=== PATIENT | female | born 1995 ===

== ENCOUNTER 2017-04-10 12:52 | Emergency (ER) | payer OTHER ==
[2017-04-10 12:52] VITALS: BMI 25.9
[2017-04-10 13:08] VITALS: BP 115/58; PULSE 113; RESP 16; TEMP 98; O2SAT 99
--- NOTE | 2017-04-10 13:11 | ED PDOC ---
HPI: Abdomen Time Seen by Provider: 04/10/17 13:10 Chief Complaint (Nursing): Abdominal Pain Chief Complaint (Provider): abdominal pain History Per: Patient Additional Complaint(s): 21-year-old female presents to emergency department with dysuria for the past 2 days. Patient has had intermittent pelvic pain for the past 2 months but has not had dysuria until 2 days ago. Patient has not taken any medication for pain relief. She denies any vaginal bleeding or vaginal discharge. Patient reports history of irregular menses and states that her last period was last week. She denies concern for . Patient is currently sexually active with one partner and denies concern for STDs. No associated fever or chills. Past Medical History Reviewed: Historical Data, Nursing Documentation, Vital Signs Vital Signs: Last Vital Signs Temp 98 F 04/10/17 13:04 Pulse 113 H 04/10/17 13:04 Resp 16 04/10/17 13:04 BP 115/58 L 04/10/17 13:04 Pulse Ox 99 04/10/17 14:07 - Medical History PMH: Anemia, Asthma - Surgical History Surgical History: No Surg Hx - Family History Family History: States: No Known Family Hx - Living Arrangements Living Arrangements: With Family - Social History Current smoker - smoking cessation education provided: Yes Alcohol: None Drugs: Denies - Home Medications Home Medications: Ambulatory Orders Medication Instructions Recorded Acetaminophen [Acetaminophen 8 650 mg PO Q8H #2 tablet.er 08/05/16 Hour] Ibuprofen [Motrin Tab] 800 mg PO Q6H PRN #2 tab 08/05/16 Ibuprofen [Motrin] 600 mg PO Q6 PRN #15 tab 04/10/17 Nitrofurantoin Macrocrystals 100 mg PO BID #14 cap 04/10/17 [Macrobid] - Allergies Allergies/Adverse Reactions: Allergies Allergy/AdvReac Type Severity Reaction Status Date / Time barium iodide Allergy ITCHING Verified 08/05/16 14:30 latex Allergy SWELLING Verified 08/05/16 14:30 Review of Systems ROS Statement: Except As Marked, All Systems Reviewed And Found Negative Constitutional: Negative for: Fever Respiratory: Negative for: Cough Gastrointestinal: Negative for: Nausea, Vomiting, Hematemesis Genitourinary Female: Positive for: Dysuria, Pelvic Pain. Negative for: Frequency, Incontinence, Vaginal Discharge, Vaginal Bleeding Physical Exam - Reviewed Nursing Documentation Reviewed: Yes Vital Signs Reviewed: Yes - Physical Exam Appears: Positive for: Well, Non-toxic, No Acute Distress Skin: Negative for: Rash Eye Exam: Positive for: Normal appearance, EOMI, PERRL Cardiovascular/Chest: Positive for: Regular Rate, Rhythm Respiratory: Positive for: Normal Breath Sounds Gastrointestinal/Abdominal: Positive for: Bowel Sounds (normoactive in all 4 quadrants), Soft, Distended. Negative for: Tenderness, Guarding, Rebound Back: Negative for: L CVA Tenderness, R CVA Tenderness Extremity: Positive for: Normal ROM Neurologic/Psych: Positive for: Alert, Oriented - Laboratory Results Urine POC: Negative Urine dip results: Positive for: Leukocyte Esterase (small), Blood (moderate) - ECG O2 Sat by Pulse Oximetry: 99 Pulse Ox Interpretation: Normal Medical Decision Making Medical Decision Makin21 year old with 2 month history of pelvic pain Plan: Urine Urine dip Urine culture CHL/GC culture UTIs noted. Patient was given prescription for Macrobid and Motrin. She was advised to drink plenty of fluids. Patient was instructed to follow up with primary doctor for any persistent symptoms. Disposition - Clinical Impression Clinical Impression: Urinary tract infection - Patient ED Disposition Is Patient to be Admitted: No Counseled Patient/Family Regarding: Studies Performed, Diagnosis, Need For Followup, Rx Given - Disposition Referrals: Shaik Kirby MD [Family Provider] - Disposition: Routine/Home Disposition Time: 14:34 Condition: STABLE Additional Instructions: Take rx meds as directed. Drink plenty of water. Follow up in 1-2 days with primary care doctor. Prescriptions: Ibuprofen [Motrin] 600 mg PO Q6 PRN #15 tab PRN Reason: Pain, Moderate (4-7) Nitrofurantoin Macrocrystals [Macrobid] 100 mg PO BID #14 cap Instructions: Urinary Tract Infection in Women (ED) Forms: [employer] ([place])
== END 2017-04-10 15:08 | disposition home or self-care (01) ==
LOC: H.ER 12:52
DX: N39.0 Urinary tract infection, site not specified (principal); J45.909 Unspecified asthma, uncomplicated

== ENCOUNTER 2017-04-17 12:59 | Emergency (ER) | payer OTHER ==
[2017-04-17 12:59] VITALS: BMI 25.9
[2017-04-17 13:18] VITALS: BP 113/65; PULSE 71; RESP 16; TEMP 98.2; O2SAT 99
[2017-04-17] MEDS ORDERED: cefTRIAXone (Rocephin) 250 mg Inj IM STA (13:19)
[2017-04-17] MEDS ORDERED: Sterile Water 10 ML IV ONE (13:43)
--- NOTE | 2017-04-17 14:17 | ED PDOC ---
HPI: General Adult Time Seen by Provider: 04/17/17 13:30 Chief Complaint (Nursing): Abnormal Labs Chief Complaint (Provider): Abnl labs History Per: Patient History/Exam Limitations: no limitations Recently: Seen In ED Additional History Per: Patient Additional Complaint(s): The patient is a 21yo female, no past medical history, presents to the ED for a follow up visit after being informed she was positive for gonorrhea. Patient denies any fevers, chills, but does report cold and congestion for the past week. She reports nasal congestion and mild throat pain upon swallowing. No other medical complaints. Past Medical History Reviewed: Historical Data, Nursing Documentation, Vital Signs Vital Signs: Last Vital Signs Temp 98.2 F 04/17/17 13:16 Pulse 71 04/17/17 13:16 Resp 16 04/17/17 13:16 BP 113/65 04/17/17 13:16 Pulse Ox 99 04/17/17 14:18 - Medical History PMH: Anemia, Asthma - Family History Family History: States: Unknown Family Hx - Home Medications Home Medications: Ambulatory Orders Medication Instructions Recorded Acetaminophen [Acetaminophen 8 650 mg PO Q8H #2 tablet.er 08/05/16 Hour] Ibuprofen [Motrin Tab] 800 mg PO Q6H PRN #2 tab 08/05/16 Ibuprofen [Motrin] 600 mg PO Q6 PRN #15 tab 04/10/17 Nitrofurantoin Macrocrystals 100 mg PO BID #14 cap 04/10/17 [Macrobid] Ibuprofen [Motrin] 600 mg PO Q8 PRN #21 tab 04/17/17 Pseudoephedrine [Sudafed Tab] 60 mg PO Q6 PRN #24 tab 04/17/17 - Allergies Allergies/Adverse Reactions: Allergies Allergy/AdvReac Type Severity Reaction Status Date / Time barium iodide Allergy ITCHING Verified 08/05/16 14:30 latex Allergy SWELLING Verified 08/05/16 14:30 Review of Systems ROS Statement: Except As Marked, All Systems Reviewed And Found Negative Constitutional: Negative for: Fever, Chills ENT: Positive for: Nose Congestion, Throat Pain Physical Exam - Reviewed Nursing Documentation Reviewed: Yes Vital Signs Reviewed: Yes - Physical Exam Appears: Positive for: Well, Non-toxic, No Acute Distress Head Exam: Positive for: ATRAUMATIC, NORMAL INSPECTION, NORMOCEPHALIC Skin: Positive for: Normal Color, Warm, DRY Eye Exam: Positive for: EOMI, Normal appearance, PERRL ENT: Positive for: Nasal Congestion, Pharyngeal Erythema (mild) Neck: Positive for: Normal, Supple Cardiovascular/Chest: Positive for: Regular Rate, Rhythm Respiratory: Positive for: Normal Breath Sounds. Negative for: Respiratory Distress Neurologic/Psych: Positive for: Alert, Oriented. Negative for: Motor/Sensory Deficits - ECG O2 Sat by Pulse Oximetry: 99 (RA) Pulse Ox Interpretation: Normal - Progress ED Course And Treament: Rocephin 250 mg IM x 1 dose Zithromax 1 gm po x 1 dose Called to bedside to discuss additional symptoms of nasal congestion/sneezing/ sore throat. Denies any fevers/cough. ENT: nasal congestion noted. Pharynx: no exudates; minimal erythema noted. Lungs: CTAB Medical Decision Making Medical Decision Making: Time: 1340 Impression: Follow up visit, nasal congestion Plan: -- Zithromax 100 gm PO -- Rocephin 125 mg IM Reassess Scribe Attestation: Documented by Екатерина Holland acting as a scribe for SAV Lim Provider Attestation: All medical record entries made by the Scribe were at my direction and personally dictated by me. I have reviewed the chart and agree that the record accurately reflects my personal performance of the history, physical exam, medical decision making, and the department course for this patient. I have also personally directed, reviewed, and agree with the discharge instructions and disposition. Disposition - Clinical Impression Clinical Impression: Viral illness, Gonorrhea - Patient ED Disposition Is Patient to be Admitted: No - Disposition [facility] Disposition: Routine/Home Disposition Time: 14:22 Condition: FAIR Prescriptions: Ibuprofen [Motrin] 600 mg PO Q8 PRN #21 tab PRN Reason: Pain, Moderate (4-7) Pseudoephedrine [Sudafed Tab] 60 mg PO Q6 PRN #24 tab PRN Reason: Nasal Congestion Instructions: Sexually Transmitted Diseases (ED), Viral Syndrome (ED) Forms: [employer] (Persian), [facility] ED School/Work Excuse
== END 2017-04-17 14:36 | disposition home or self-care (01) ==
LOC: H.ER 12:59
DX: A54.9 Gonococcal infection, unspecified (principal); B34.9 Viral infection, unspecified
CPT/HCPCS: 96372; 99281; J0696

== ENCOUNTER 2017-09-30 12:40 | Emergency (ER) | payer OTHER ==
[2017-09-30 12:40] VITALS: BMI 25.9
[2017-09-30] MEDS ORDERED: Sodium Chloride 0.9% 1,000 ML IV SCH ×2 (13:30→19:30)
[2017-09-30 13:57] LABS: BASO % 0.4 % (0.0-2.0); HEMOGLOBIN 13.7 g/dL (12.0-16.0); LYMPH # 0.2 K/uL (1.0-4.3); LYMPH % 1.9 % (20.0-40.0); MEAN CELL VOLUME 92.4 fl (81.0-99.0); MEAN CORPUSCULAR HEMOGLOBIN 30.5 pg (27.0-31.0); MEAN PLATELET VOLUME 8.3 fl (7.2-11.7); MONO # 0.5 K/uL (0.0-0.8); MONO % 4.3 % (0.0-10.0); NEUT # 11.4 K/uL (1.8-7.0); NEUT % 93.4 % (50.0-75.0); NRBC % 0.1 % (0.0-0.0); PLATELET COUNT 216 K/uL (130-400); RBC 4.49 Mil/uL (3.80-5.20); RED CELL DISTRIBUTION WIDTH 12.9 % (11.5-14.5); WHITE BLOOD COUNT 12.2 K/uL (4.8-10.8)
[2017-09-30 14:33] LABS: ALB/GLOB RATIO 1.3 (1.0-2.1); ALBUMIN 4.4 g/dL (3.5-5.0); ALT/SGPT 55 U/L (9-52); AST/SGOT 32 U/L (14-36); BLOOD UREA NITROGEN 17 mg/dl (7-17); CALCIUM 9.4 mg/dL (8.4-10.2); GFR AFRICAN-AMERICAN > 60; GFR NON-AFRICAN AMERICAN > 60; LIPASE 39 U/L (23-300)
[2017-09-30 14:39] LABS: BANDS 4 % (0-2); LYMPHOCYTE 1 % (20-50); MONOCYTE 5 % (0-10); NEUTROPHIL 90 % (42-75); PLATELET ESTIMATE NORMAL (NORMAL); TOTAL CELLS COUNTED 100
--- NOTE | 2017-09-30 15:14 | ED PDOC ---
HPI: Abdomen Time Seen by Provider: 09/30/17 13:06 Chief Complaint (Nursing): GI Problem Chief Complaint (Provider): Abdominal Pain History Per: Patient History/Exam Limitations: no limitations Onset/Duration Of Symptoms: Days (x4) Outside of [place] travel?: No Current Symptoms Are (Timing): Still Present Additional Complaint(s): Patient complains of abdominal pain that she has been experiencing for the past four days, associated with multiple episodes of both vomiting and diarrhea. Otherwise: (-) fever, (-) melena, (-) hematochezia, (-) recent travel, (-) new foods, (-) recent antibiotics use. Past Medical History Reviewed: Historical Data, Nursing Documentation, Vital Signs Vital Signs: Last Vital Signs Temp 98 F 09/30/17 12:46 Pulse 65 09/30/17 18:26 Resp 16 09/30/17 18:26 BP 122/78 09/30/17 18:26 Pulse Ox 100 09/30/17 18:46 - Medical History PMH: Anemia, Asthma - Family History Family History: States: Unknown Family Hx - Immunization History Hx Tetanus Toxoid Vaccination: No Hx Influenza Vaccination: No Hx Pneumococcal Vaccination: No - Home Medications Home Medications: Ambulatory Orders Medication Instructions Recorded Acetaminophen [Acetaminophen 8 650 mg PO Q8H #2 tablet.er 08/05/16 Hour] Ibuprofen [Motrin Tab] 800 mg PO Q6H PRN #2 tab 08/05/16 Ibuprofen [Motrin] 600 mg PO Q6 PRN #15 tab 04/10/17 Nitrofurantoin Macrocrystals 100 mg PO BID #14 cap 04/10/17 [Macrobid] Ibuprofen [Motrin] 600 mg PO Q8 PRN #21 tab 04/17/17 Pseudoephedrine [Sudafed Tab] 60 mg PO Q6 PRN #24 tab 04/17/17 Dicyclomine [Bentyl] 20 mg PO QID PRN #20 tab 09/30/17 Loperamide [Loperamide HCl] 2 mg PO DAILY PRN #10 cap 09/30/17 Ondansetron ODT [Zofran ODT] 4 mg PO DAILY PRN #20 odt 09/30/17 - Allergies Allergies/Adverse Reactions: Allergies Allergy/AdvReac Type Severity Reaction Status Date / Time barium iodide Allergy ITCHING Verified 08/05/16 14:30 latex Allergy SWELLING Verified 08/05/16 14:30 Review of Systems Constitutional: Negative for: Fever Gastrointestinal: Positive for: Vomiting, Abdominal Pain, Diarrhea Physical Exam - Reviewed Nursing Documentation Reviewed: Yes Vital Signs Reviewed: Yes - Physical Exam Comments: GENERAL APPEARANCE: Patient is awake, alert, oriented x 3, in mild distress. SKIN: Warm, dry; (-) cyanosis. EYES: (-) conjunctival pallor, (-) scleral icterus. ENMT: Mucous membranes dry. NECK: (-) tenderness, (-) stiffness, (-) lymphadenopathy. CHEST AND RESPIRATORY: (-) rales, (-) rhonchi, (-) wheezes; breath sounds equal bilaterally. HEART AND CARDIOVASCULAR: (-) irregularity; (-) murmur, (-) gallop. ABDOMEN AND GI: (-) distention. Bowel sounds active; mild diffuse abdominal tenderness to palpation. (-) guarding, (-) rebound, (-) palpable masses, (-) CVA tenderness. EXTREMITIES: (-) deformity, (-) edema, (+) distal pulses. NEURO AND PSYCH: Mental status as above; (-) focal findings. - Laboratory Results Result Diagrams: 09/30/17 13:40 09/30/17 13:40 - ECG O2 Sat by Pulse Oximetry: 100 (RA) Pulse Ox Interpretation: Normal Medical Decision Making Medical Decision Making: Impression: Abdominal Pain Plan: * CT Abdomen/Pelvis w/o PO or IV contrast * Pepcid 20 mg IV * Zofran 4 mg IV * NaCl 1000 mLs at 1000 mLs/hr * Reevaluation * [facility] [place] (-) Labs reviewed : patient noted to have a mild elevation to her WBC with bands. Considering elevated WBC and bandemia, CT A/P ordered. On re-evaluation, patient reports mild improvement of symptoms, reports no vomiting. On exam, patient remains AAOx3, in no acute distress. Lungs clear to auscultation, cardiac RRR, abdomen soft, non-tender. CT Abdomen/Pelvis w/o PO or IV contrast FINDINGS: Limitations: Lack of intravenous contrast. Lower thorax: No acute findings. ABDOMEN: Liver: Fatty infiltration. Gallbladder and bile ducts: No calcified stones. No ductal dilation. Pancreas: Unremarkable. No ductal dilation. Spleen: No splenomegaly. Adrenals: No mass. Kidneys and ureters: No renal calculi. No hydronephrosis. Stomach and bowel: Fluid within small bowel. Fluid/loose stool within large bowel. No definite mural thickening. No obstruction. Appendix: Normal caliber. No inflammation. PELVIS: Bladder: Unremarkable. No stones. Reproductive: Unremarkable as visualized. ABDOMEN and PELVIS: Intraperitoneal space: No significant fluid collection. No free air. Bones/joints: No acute fracture. Soft tissues: Tiny umbilical hernia containing fat. Vasculature: Unremarkable. No aneurysm. Lymph nodes: No pathologically enlarged lymph nodes. IMPRESSION: 1. Fluid/loose stool within bowel may suggest diarrhea illness. 2. Incidental/non-acute findings are described above. On re-evaluation, patient is resting in bed comfortably, able to tolerate po fluids. Diagnostic results d/w the patient in great detail. Diagnosis of gastroenteritis d/w the patient. Based on history, exam and diagnostic results, plan will be for outpatient follow up. Patient instructed to follow-up with pmd in 1-2 days without fail. Advised to take medication as prescribed. Return to the emergency room at any time for any new or worsening symptoms. Patient states she fully agrees with and understands discharge instructions. States that she agrees with the plan and disposition. Verbalized and repeated discharge instructions and plan. I have given the patient opportunity to ask any additional questions. Scribe Attestation: Documented by Nahomi Reddy, acting as a scribe for Irene Waller PA-C. Provider Scribe Attestation: All medical record entries made by the Scribe were at my direction and personally dictated by me. I have reviewed the chart and agree that the record accurately reflects my personal performance of the history, physical exam, medical decision making, and the department course for this patient. I have also personally directed, reviewed, and agree with the discharge instructions and disposition. Disposition - Clinical Impression Clinical Impression: Gastroenteritis - Patient ED Disposition Is Patient to be Admitted: No Counseled Patient/Family Regarding: Studies Performed, Diagnosis, Need For Followup, Rx Given - Disposition Disposition: Routine/Home Disposition Time: 18:45 Condition: STABLE Additional Instructions: Thank you for letting us take care of you today. You were treated for gastroenteritis. The emergency medical care you received today was directed at your acute symptoms. If you were prescribed any medication, please fill it and take as directed. It may take several days for your symptoms to resolve. Return to the Emergency Department if your symptoms worsen, do not improve, or if you have any other problems. Please contact your doctor in 2 days for re-evaluation and follow up / or call one of the physicians/clinics you have been referred to that are listed on the Patient Visit Information form that is included in your discharge packet. Bring any paperwork you were given at discharge with you along with any medications you are taking to your follow up visit. Our treatment cannot replace ongoing medical care by a primary care provider (PCP) outside of the emergency department. Thank you for allowing the [facility] team to be part of your care today. Prescriptions: Dicyclomine [Bentyl] 20 mg PO QID PRN #20 tab PRN Reason: Other Loperamide [Loperamide HCl] 2 mg PO DAILY PRN #10 cap PRN Reason: Diarrhea Ondansetron ODT [Zofran ODT] 4 mg PO DAILY PRN #20 odt PRN Reason: Nausea/Vomiting Instructions: Gastroenteritis (ED) Forms: [employer] ([place]), [facility] ED School/Work Excuse
[2017-09-30] MEDS ORDERED: Iohexol 300 100 ML IJ ONE (16:32)
[2017-09-30] MEDS ORDERED: Sodium Chloride 0.9% 50 ML IV ONE (16:33)
[2017-09-30 18:26] VITALS: RESP 16
--- NOTE | 2017-09-30 18:38 | CT ---
EXAM: CT Abdomen and Pelvis Without Intravenous Contrast CLINICAL HISTORY: 21 years old, female; Pain; Abdominal pain; Generalized; Patient HX: Ruq luq epigastric umbilical pain n v d x 3 days; Additional info: Abdominal pain, v/d TECHNIQUE: Axial computed tomography images of the abdomen and pelvis without intravenous contrast. All CT scans at this facility use one or more dose reduction techniques, viz.: automated exposure control; ma/kV adjustment per patient size (including targeted exams where dose is matched to indication; i.e. head); or iterative reconstruction technique. Coronal and sagittal reformatted images were created and reviewed. COMPARISON: No relevant prior studies available. FINDINGS: Limitations: Lack of intravenous contrast. Lower thorax: No acute findings. ABDOMEN: Liver: Fatty infiltration. Gallbladder and bile ducts: No calcified stones. No ductal dilation. Pancreas: Unremarkable. No ductal dilation. Spleen: No splenomegaly. Adrenals: No mass. Kidneys and ureters: No renal calculi. No hydronephrosis. Stomach and bowel: Fluid within small bowel. Fluid/loose stool within large bowel. No definite mural thickening. No obstruction. Appendix: Normal caliber. No inflammation. PELVIS: Bladder: Unremarkable. No stones. Reproductive: Unremarkable as visualized. ABDOMEN and PELVIS: Intraperitoneal space: No significant fluid collection. No free air. Bones/joints: No acute fracture. Soft tissues: Tiny umbilical hernia containing fat. Vasculature: Unremarkable. No aneurysm. Lymph nodes: No pathologically enlarged lymph nodes. IMPRESSION: 1. Fluid/loose stool within bowel may suggest diarrhea illness. 2. Incidental/non-acute findings are described above.
[2017-09-30 19:41] VITALS: BP 102/58; PULSE 119; O2SAT 99
[2017-09-30 20:53] VITALS: TEMP 101.8
== END 2017-09-30 21:10 | disposition home or self-care (01) ==
LOC: H.ER 12:40
DX: K52.9 Noninfective gastroenteritis and colitis, unspecified (principal)
CPT/HCPCS: 74176; 80053; 81025; 83690; 85025; 96361; 96374; 96375; 99285; J2405; J7040; Q9967

== ENCOUNTER 2017-11-09 16:36 | Emergency (ER) | payer OTHER ==
[2017-11-09 16:36] VITALS: BMI 25.9
[2017-11-09 17:01] VITALS: BP 111/74; PULSE 88; RESP 16; TEMP 98.4; O2SAT 99
--- NOTE | 2017-11-09 19:16 | ED PDOC ---
HPI:Nausea, Vomiting, Diarrhea Time Seen by Provider: 11/09/17 17:35 Chief Complaint (Nursing): Abdominal Pain Chief Complaint (Provider): Nausea and vomiting History Per: Patient History/Exam Limitations: no limitations Onset/Duration Of Symptoms: Days (x 1 month) Current Symptoms Are (Timing): Still Present Additional Complaint(s): 22 year old female presents to the ED complaining of nausea, upper abdominal discomfort and difficulty tolerating food ongoing for the last month. Patient was seen in the ED for similar symptoms, given Bentyl and followed up with PMD. She is currently taking Protonix without improvement. Otherwise: (-) chest pain , (-) shortness of breath,(-) vomiting, (-) diarrhea, (-) fever, (-) melena, (- ) hematochezia, (-) urinary symtpoms, (-) vaginal bleeding, (-) vaginal discharge. PMD: Dr. Shaik Mirta ADDISON Past Medical History Reviewed: Historical Data Vital Signs: Last Vital Signs Temp 98.4 F 11/09/17 16:58 Pulse 88 11/09/17 16:58 Resp 16 11/09/17 16:58 BP 111/74 11/09/17 16:58 Pulse Ox 99 11/09/17 16:58 - Medical History PMH: Anemia, Asthma - Surgical History Surgical History: No Surg Hx - Family History Family History: States: Unknown Family Hx - Immunization History Hx Tetanus Toxoid Vaccination: No Hx Influenza Vaccination: No Hx Pneumococcal Vaccination: No - Home Medications Home Medications: Ambulatory Orders Medication Instructions Recorded Acetaminophen [Acetaminophen 8 650 mg PO Q8H #2 tablet.er 08/05/16 Hour] Ibuprofen [Motrin Tab] 800 mg PO Q6H PRN #2 tab 08/05/16 Ibuprofen [Motrin] 600 mg PO Q6 PRN #15 tab 04/10/17 Nitrofurantoin Macrocrystals 100 mg PO BID #14 cap 04/10/17 [Macrobid] Ibuprofen [Motrin] 600 mg PO Q8 PRN #21 tab 04/17/17 Pseudoephedrine [Sudafed Tab] 60 mg PO Q6 PRN #24 tab 04/17/17 Dicyclomine [Bentyl] 20 mg PO QID PRN #20 tab 09/30/17 Loperamide [Loperamide HCl] 2 mg PO DAILY PRN #10 cap 09/30/17 Ondansetron ODT [Zofran ODT] 4 mg PO DAILY PRN #20 odt 09/30/17 Sucralfate [Carafate] 1 gm PO TID PRN #30 tab 11/09/17 - Allergies Allergies/Adverse Reactions: Allergies Allergy/AdvReac Type Severity Reaction Status Date / Time barium iodide Allergy ITCHING Verified 11/09/17 16:57 iodine Allergy ITCHING Verified 11/09/17 16:57 latex Allergy SWELLING Verified 11/09/17 16:57 Review of Systems ROS Statement: Except As Marked, All Systems Reviewed And Found Negative Constitutional: Positive for: Other (difficulty tolerating food). Negative for : Fever Gastrointestinal: Positive for: Nausea, Vomiting Genitourinary Female: Negative for: Dysuria, Frequency, Incontinence, Hematuria , Vaginal Discharge, Vaginal Bleeding Physical Exam - Reviewed Nursing Documentation Reviewed: Yes Vital Signs Reviewed: Yes - Physical Exam Comments: GENERAL APPEARANCE: Patient is awake, alert, oriented x 3, in no acute distress. Patient laying in bed comfortably. SKIN: Warm, dry; (-) cyanosis. EYES: (-) conjunctival pallor, (-) scleral icterus. ENMT: Mucous membranes moist. NECK: (-) tenderness, (-) stiffness, (-) lymphadenopathy. CHEST AND RESPIRATORY: (-) rales, (-) rhonchi, (-) wheezes; breath sounds equal bilaterally. HEART AND CARDIOVASCULAR: (-) irregularity; (-) murmur, (-) gallop. ABDOMEN AND GI: (-) distention. Bowel sounds active; (-) tenderness to deep palpation (-) guarding, (-) rebound, (-) palpable masses, (-) CVA tenderness. EXTREMITIES: (-) deformity, (-) edema, (+) distal pulses. NEURO AND PSYCH: Mental status as above; (-) focal findings. - ECG O2 Sat by Pulse Oximetry: 99 (RA) Pulse Ox Interpretation: Normal Medical Decision Making Medical Decision Making: Patient's previous records were reviewed. She was seen here on 09/30/[address] was within normal limits and gallbladder showed no stones. Time: 17:59 --Urine preg Urine HCG today was positive. Patient was notified that she is and was unaware. On reevaluation, she has no lower abdominal pain or vaginal bleeding. Her repeat abdominal exam was normal, with no tenderness to deep palpation. Patient is stable for discharge. She is going to follow up with GI referral and her OBGYN. Advised to take over the counter vitamins. Advised to take medication as prescribed. Return to the emergency room at any time for any new or worsening symptoms. Patient states she fully agrees with and understands discharge instructions. States that she agrees with the plan and disposition. Verbalized and repeated discharge instructions and plan. I have given the patient opportunity to ask any additional questions. ---- Scribe Attestation: Documented by Renetta Kelly, acting as a scribe for Irene Waller PA-C Provider Scribe Attestation: All medical record entries made by the Scribe were at my direction and personally dictated by me. I have reviewed the chart and agree that the record accurately reflects my personal performance of the history, physical exam, medical decision making, and the department course for this patient. I have also personally directed, reviewed, and agree with the discharge instructions and disposition. Disposition - Clinical Impression Clinical Impression: Abdominal pain, Dyspepsia, - Patient ED Disposition Is Patient to be Admitted: No Counseled Patient/Family Regarding: Diagnosis, Need For Followup, Rx Given - Disposition Referrals: Mark Huang MD [Staff Provider] - Disposition: Routine/Home Disposition Time: 18:30 Condition: STABLE Additional Instructions: Thank you for letting us take care of you today. You were treated for abdominal pain, dyspepsia. The emergency medical care you received today was directed at your acute symptoms. If you were prescribed any medication, please fill it and take as directed. It may take several days for your symptoms to resolve. Return to the Emergency Department if your symptoms worsen, do not improve, or if you have any other problems. Please contact your doctor in 2 days for re-evaluation and follow up / or call one of the physicians/clinics you have been referred to that are listed on the Patient Visit Information form that is included in your discharge packet. Bring any paperwork you were given at discharge with you along with any medications you are taking to your follow up visit. Our treatment cannot replace ongoing medical care by a primary care provider (PCP) outside of the emergency department. Thank you for allowing the [facility] team to be part of your care today. 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
== END 2017-11-09 18:20 | disposition home or self-care (01) ==
LOC: H.ER 16:36
DX: O26.899 Other specified pregnancy related conditions, unspecified trimester (principal); K30 Functional dyspepsia; J45.909 Unspecified asthma, uncomplicated

== ENCOUNTER 2018-05-13 09:57 | Emergency (ER) | payer OTHER ==
[2018-05-13 09:57] VITALS: BMI 25.9
--- NOTE | 2018-05-13 11:22 | ED PDOC ---
HPI: Abdomen Time Seen by Provider: 05/13/18 11:18 Chief Complaint (Nursing): Abdominal Pain Chief Complaint (Provider): ABD PAIN History Per: Patient (22 Y/O FEMALE HERE WITH ONGOING ABDOMINAL DISTENTION. DENIES ANY VOMITING/DIARRHEA/DYSURIA. WAS SEEN 09/2017 FOR ABD PAIN AND HAD CT AT THAT TIME WNL. PATIENT STATES SHE FEELS DISTENTION IS NEW SINCE THEN. HAD POSITIVE 10/2017 BUT LATER MISCARRIED.) Past Medical History Vital Signs: Last Vital Signs Temp 97.6 F 05/13/18 10:20 Pulse 105 H 05/13/18 10:20 Resp 20 05/13/18 10:20 BP 119/76 05/13/18 10:20 Pulse Ox 98 05/13/18 13:55 - Medical History PMH: Anemia, Asthma - Family History Family History: States: Unknown Family Hx - Immunization History Hx Tetanus Toxoid Vaccination: No Hx Influenza Vaccination: No Hx Pneumococcal Vaccination: No - Home Medications Home Medications: Ambulatory Orders Medication Instructions Recorded Acetaminophen [Acetaminophen 8 650 mg PO Q8H #2 tablet.er 08/05/16 Hour] Ibuprofen [Motrin Tab] 800 mg PO Q6H PRN #2 tab 08/05/16 Ibuprofen [Motrin] 600 mg PO Q6 PRN #15 tab 04/10/17 Nitrofurantoin Macrocrystals 100 mg PO BID #14 cap 04/10/17 [Macrobid] Ibuprofen [Motrin] 600 mg PO Q8 PRN #21 tab 04/17/17 Pseudoephedrine [Sudafed Tab] 60 mg PO Q6 PRN #24 tab 04/17/17 Dicyclomine [Bentyl] 20 mg PO QID PRN #20 tab 09/30/17 Loperamide [Loperamide HCl] 2 mg PO DAILY PRN #10 cap 09/30/17 Ondansetron ODT [Zofran ODT] 4 mg PO DAILY PRN #20 odt 09/30/17 Sucralfate [Carafate] 1 gm PO TID PRN #30 tab 11/09/17 Famotidine [Pepcid] 20 mg PO BID #10 tab 05/13/18 Simethicone [Gas-X] 125 mg PO QID PRN #24 ctb 05/13/18 - Allergies Allergies/Adverse Reactions: Allergies Allergy/AdvReac Type Severity Reaction Status Date / Time barium iodide Allergy ITCHING Verified 05/13/18 10:20 iodine Allergy ITCHING Verified 05/13/18 10:20 latex Allergy SWELLING Verified 05/13/18 10:20 - Laboratory Results Result Diagrams: 05/13/18 11:30 05/13/18 11:30 - ECG O2 Sat by Pulse Oximetry: 98 - Progress ED Course And Treament: xry obstructive IMPRESSION: Unremarkable radiographs of chest and abdomen. No evidence of mechanical bowel obstruction. us transvag IMPRESSION: No significant or acute findings to account for/ related to the clinical presentation. Additional benign and/or incidental findings described above. us abd IMPRESSION: Hepatic steatosis without focal abnormality. Solitary nonobstructing calculus midpole left kidney. Disposition - Clinical Impression Clinical Impression: Abdominal distension - Patient ED Disposition Is Patient to be Admitted: No - Disposition Referrals: Mark Huang MD [Staff Provider] - Disposition: Routine/Home Disposition Time: 13:56 Condition: FAIR Prescriptions: Famotidine [Pepcid] 20 mg PO BID #10 tab Simethicone [Gas-X] 125 mg PO QID PRN #24 ctb PRN Reason: Pain, Moderate (4-7) Instructions: Gas and Bloating Forms: [facility] ED School/Work Excuse
[2018-05-13 11:43] LABS: SQUAMOUS EPITHIAL 2 /hpf (0-5); URINE BACTERIA RARE (<OCC); URINE BILIRUBIN NEGATIVE (NEGATIVE); URINE BLOOD NEGATIVE (NEGATIVE); URINE CLARITY CLEAR (Clear); URINE COLOR YELLOW (YELLOW); URINE GLUCOSE (UA) NEG (Normal); URINE LEUKOCYTE ESTERASE NEG Leu/uL (Negative); URINE PROTEIN NEGATIVE (NEGATIVE); URINE UROBILINOGEN 0.2-1.0 mg/dL (0.2-1.0)
[2018-05-13 11:44] LABS: BASO % 0.3 % (0.0-2.0); EOS # 0.1 K/uL (0.0-0.7); EOS % 1.7 % (0.0-4.0); HEMOGLOBIN 13.3 g/dL (12.0-16.0); LYMPH % 26.9 % (20.0-40.0); MEAN CELL VOLUME 90.9 fl (81.0-99.0); MEAN CORPUSCULAR HEMOGLOBIN 30.4 pg (27.0-31.0); MEAN CORPUSCULAR HGB CONC 33.5 g/dL (33.0-37.0); MEAN PLATELET VOLUME 8.2 fl (7.2-11.7); MONO # 0.6 K/uL (0.0-0.8); MONO % 8.3 % (0.0-10.0); NEUT # 4.6 K/uL (1.8-7.0); NEUT % 62.8 % (50.0-75.0); RBC 4.36 Mil/uL (3.80-5.20); RED CELL DISTRIBUTION WIDTH 13.5 % (11.5-14.5); WHITE BLOOD COUNT 7.3 K/uL (4.8-10.8)
[2018-05-13 11:52] LABS: ALB/GLOB RATIO 1.3 (1.0-2.1); ALBUMIN 4.4 g/dL (3.5-5.0); ALT/SGPT 113 U/L (9-52); AST/SGOT 57 U/L (14-36); BLOOD UREA NITROGEN 14 mg/dl (7-17); CALCIUM 9.3 mg/dL (8.4-10.2); GFR NON-AFRICAN AMERICAN > 60; LIPASE 72 U/L (23-300)
--- NOTE | 2018-05-13 13:11 | US ---
Date of service: 05/13/2018 HISTORY: DISTENDED ABDOMEN; EVALUATE FOR ASCITES COMPARISON: None. TECHNIQUE: Sonographic evaluation of the abdomen. FINDINGS: LIVER: Measures 16.4 cm. Patent portal vein. Portal venous flow: Hepatopetal. Unremarkable echogenicity of the liver parenchyma. No mass. No intrahepatic bile duct dilatation. GALLBLADDER: Unremarkable. No gallstones. COMMON BILE DUCT: Measures 3.2 mm. No stones. No dilatation. PANCREAS: Unremarkable as visualized. No mass. No ductal dilatation. RIGHT KIDNEY: Measures 5 x 11.3cm. Normal echogenicity. No calculus, mass, or hydronephrosis. LEFT KIDNEY: Measures 5.2 x 10.6cm. Solitary nonobstructing calculus mid pole measuring 3 x 4 mm. SPLEEN: Normal in size and contour. No mass. AORTA: No aneurysmal dilatation. IVC: Unremarkable. OTHER FINDINGS: None. IMPRESSION: Hepatic steatosis without focal abnormality. Solitary nonobstructing calculus midpole left kidney.
--- NOTE | 2018-05-13 13:11 | RAD ---
Date of service: 05/13/2018 PROCEDURE: Radiographs of the chest and abdomen (obstructive series) HISTORY: Distended abdomen COMPARISON: No prior. TECHNIQUE: AP radiograph of the chest, with upright and supine radiographs of the abdomen. FINDINGS: CHEST: Lungs: Clear. Cardiovascular: Normal size heart. No pulmonary vascular congestion. Pleura: No pleural fluid. No pneumothorax. Other findings: None. ABDOMEN AND PELVIS: Bowel: Unremarkable bowel gas pattern. No evidence of mechanical obstruction. Free air: None. Bones: Unremarkable. Other findings: None. IMPRESSION: Unremarkable radiographs of chest and abdomen. No evidence of mechanical bowel obstruction.
--- NOTE | 2018-05-13 13:53 | US ---
Date of service: 05/13/2018 HISTORY: EVALUATE FOR PELVIC MASS LMP December 2017. Currently on Depo-Provera. COMPARISON: None available. TECHNIQUE: Transvaginal only. Real -time technique with 2D, duplex and color Doppler FINDINGS: UTERUS: Measures 3.7 x 5.4 x 6.8 cm. Normal in size and appearance. No fibroid or other mass lesion seen. ENDOMETRIUM: Measures 4.1 mm in diameter. No ultrasound findings to suggest gestational sac, fluid, debris, mass or polyp or other pathologic process within the endometrium. CERVIX: No cervical abnormality identified. RIGHT OVARY: Measures 2.4 x 3.9 x 3.1 cm. No solid mass. Normal flow. Multiple subcentimeter follicles. LEFT OVARY: Measures 2.7 x 3.8 x 3.8 cm. No solid mass. Normal flow. Multiple subcentimeter follicles. FREE FLUID: No significant free fluid noted. OTHER FINDINGS: None. IMPRESSION: No significant or acute findings to account for/ related to the clinical presentation. Additional benign and/or incidental findings described above.
[2018-05-13 14:00] VITALS: BP 115/81; PULSE 82; RESP 16; TEMP 97.9; O2SAT 100
== END 2018-05-13 14:09 | disposition home or self-care (01) ==
LOC: H.ER 09:57
DX: R14.0 Abdominal distension (gaseous) (principal); J45.909 Unspecified asthma, uncomplicated; N20.0 Calculus of kidney

== ENCOUNTER 2018-10-17 14:10 | Emergency (ER) | payer OTHER ==
[2018-10-17 14:35] VITALS: BP 122/75; PULSE 94; RESP 16; TEMP 99; O2SAT 99
[2018-10-17 14:36] VITALS: BMI 27.7
[2018-10-17] MEDS ORDERED: Lidocaine 1% Inj (20ml) SC ONE (14:39)
[2018-10-17] MEDS ORDERED: Tdap Vaccine 0.5 ml Vial (10-64 yrs) IM ONE (14:48)
--- NOTE | 2018-10-17 14:59 | ED PDOC ---
HPI: General Adult Time Seen by Provider: 10/17/18 14:35 Chief Complaint (Nursing): ENT Problem Chief Complaint (Provider): Earrings Stuck in Ears History Per: Patient History/Exam Limitations: no limitations Onset/Duration Of Symptoms: Days (x2 weeks) Current Symptoms Are (Timing): Still Present Additional Complaint(s): 22 year old female presents to the ED for evaluation of bilateral ear pain caused by earrings which have sunken in s/p getting the piercings two weeks ago. Denies fever and chills. Tetanus up to date (2 years ago) PMD: Shaik Kirby Past Medical History Reviewed: Historical Data, Nursing Documentation, Vital Signs Vital Signs: Last Vital Signs Temp 99 F 10/17/18 14:34 Pulse 94 H 10/17/18 14:34 Resp 16 10/17/18 14:34 BP 122/75 10/17/18 14:34 Pulse Ox 99 10/17/18 14:34 - Medical History PMH: Anemia, Asthma - Surgical History Surgical History: No Surg Hx - Family History Family History: States: Unknown Family Hx - Immunization History Hx Tetanus Toxoid Vaccination: Yes (2 years ago, as per patient) Hx Influenza Vaccination: No Hx Pneumococcal Vaccination: No - Home Medications Home Medications: Ambulatory Orders Medication Instructions Recorded Acetaminophen [Acetaminophen 8 650 mg PO Q8H #2 tablet.er 08/05/16 Hour] Ibuprofen [Motrin Tab] 800 mg PO Q6H PRN #2 tab 08/05/16 Ibuprofen [Motrin] 600 mg PO Q6 PRN #15 tab 04/10/17 Nitrofurantoin Macrocrystals 100 mg PO BID #14 cap 04/10/17 [Macrobid] Ibuprofen [Motrin] 600 mg PO Q8 PRN #21 tab 04/17/17 Pseudoephedrine [Sudafed Tab] 60 mg PO Q6 PRN #24 tab 04/17/17 Dicyclomine [Bentyl] 20 mg PO QID PRN #20 tab 09/30/17 Loperamide [Loperamide HCl] 2 mg PO DAILY PRN #10 cap 09/30/17 Ondansetron ODT [Zofran ODT] 4 mg PO DAILY PRN #20 odt 09/30/17 Sucralfate [Carafate] 1 gm PO TID PRN #30 tab 11/09/17 Docusate Sodium [Colace] 100 mg PO BID PRN #20 capsule 05/13/18 Simethicone [Gas-X] 125 mg PO QID PRN #24 ctb 05/13/18 Bacitracin Ointment [Bacitracin] 0.5 gm TOP BID #30 gm 10/17/18 Cephalexin [Keflex] 500 mg PO QID #28 cap 10/17/18 - Allergies Allergies/Adverse Reactions: Allergies Allergy/AdvReac Type Severity Reaction Status Date / Time barium iodide Allergy ITCHING Verified 05/13/18 10:20 iodine Allergy ITCHING Verified 05/13/18 10:20 latex Allergy SWELLING Verified 05/13/18 10:20 Review of Systems ROS Statement: Except As Marked, All Systems Reviewed And Found Negative Constitutional: Negative for: Fever, Chills ENT: Positive for: Ear Pain (bilateral, secondary to earrings sunken into skin) Physical Exam - Reviewed Nursing Documentation Reviewed: Yes Vital Signs Reviewed: Yes - Physical Exam Appears: Positive for: No Acute Distress Head Exam: Positive for: ATRAUMATIC, NORMAL INSPECTION, NORMOCEPHALIC Skin: Positive for: Normal Color, Warm Eye Exam: Positive for: Normal appearance ENT: Positive for: Other (Right ear: earring in place at helix with purulent discharge, surrounding swelling, and mild bleeding. Left ear: earring post sunken into tragus and enclosed by skin) Neck: Positive for: Normal, Painless ROM Cardiovascular/Chest: Positive for: Regular Rate, Rhythm Respiratory: Positive for: Normal Breath Sounds. Negative for: Respiratory Distress - ECG O2 Sat by Pulse Oximetry: 99 (RA) Pulse Ox Interpretation: Normal Medical Decision Making Medical Decision Making: Time: 1439 Initial Impression: earrings stuck in ear skin Initial Plan: --Lidocaine 1% 1ml SC 1700 Earrings removed from both ears by JYOTI. Left ear foreign body removal required a 5mm incision. Patient tolerated procedure well with no complications. Educated on wound care and return parameters. Will be discharged with antibiotics. Scribe Attestation: Documented by Danay Sawant, acting as a scribe for Jyothi Storey PA-C. Provider Scribe Attestation: All medical record entries made by the Scribe were at my direction and personally dictated by me. I have reviewed the chart and agree that the record accurately reflects my personal performance of the history, physical exam, medical decision making, and the department course for this patient. I have also personally directed, reviewed, and agree with the discharge instructions and disposition. Disposition - Clinical Impression Clinical Impression: Foreign body (FB) in soft tissue, Wound infection - Patient ED Disposition Is Patient to be Admitted: No - Disposition Disposition: Routine/Home Disposition Time: 17:17 Condition: FAIR Prescriptions: Bacitracin Ointment [Bacitracin] 0.5 gm TOP BID #30 gm Cephalexin [Keflex] 500 mg PO QID #28 cap Instructions: Foreign Body in Skin (DC), Wound Infection
[2018-10-17] MEDS ORDERED: Lidocaine 2% Inj (20ml) ONE (15:33)
[2018-10-17] MEDS: Lidocaine 2% Inj (20ml) SC ONE (17:16)
== END 2018-10-17 17:27 | disposition home or self-care (01) ==
LOC: H.ER 14:10
DX: T16.2XXA Foreign body in left ear, initial encounter (principal)

== ENCOUNTER 2018-11-18 10:32 | Emergency (ER) | payer OTHER ==
[2018-11-18 10:40] VITALS: BMI 25.8
[2018-11-18 10:41] VITALS: TEMP 97.7
--- NOTE | 2018-11-18 11:37 | ED PDOC ---
HPI: Chest Pain Time Seen by Provider: 11/18/18 10:50 Chief Complaint (Nursing): Chest Pain Chief Complaint (Provider): Chest pain History Per: Patient History/Exam Limitations: no limitations Onset/Duration Of Symptoms: Intermittent Episodes Current Symptoms Are (Timing): Gone Now Quality: "Pain" Associated Symptoms: denies: Nausea, Dyspnea, Diaphoresis, Syncope Additional History Per: Patient Additional Complaint(s): 23yo female, otherwise well, no past medical history, comes to ER reporting midsternal chest pain, radiating downwards, lasting for 1.5 hours yesterday. She states the pain is intermittently present today and has not taken any medications for her symptoms. She denies any associated nausea, vomiting, shortness of breath, OCP use, recent long distance travels or leg swelling. No additional complaints. PMD: Dr. Kirby Against Medical Advice - [facility] Patient Left Against Medical Advice: The patient declines admission to the hospital and wishes to leave the Emergency Department. This action is against my medical advice. This decision was made with informed refusal. The patient was told that admission to the hospital is necessary. Explanation of the reasons why were discussed. The risks of leaving were explained to the patient and include, but are not limited to, worsening of known or currently unknown conditions, permanent disability and from undiagnosed or untreated conditions. The patient has the capacity to make this informed decision and understands my explanation of the current medical problem and risks of leaving. The patient voluntarily accepts these risks and signed an AMA form documenting our conversation. The patient was given the opportunity to ask questions and reconsider. The patient was encouraged to return to the Emergency Department at any time for further care. Patient electing to leave [place] at 1326 Past Medical History Reviewed: Historical Data, Nursing Documentation, Vital Signs Vital Signs: Last Vital Signs Temp 97.7 F 11/18/18 10:40 Pulse 78 11/18/18 10:40 Resp 17 11/18/18 10:40 BP 117/78 11/18/18 10:40 Pulse Ox 98 11/18/18 10:40 - Medical History PMH: Anemia, Asthma - Surgical History Surgical History: No Surg Hx - Family History Family History: States: Unknown Family Hx - Immunization History Hx Tetanus Toxoid Vaccination: Yes (2 years ago, as per patient) Hx Influenza Vaccination: No Hx Pneumococcal Vaccination: No - Home Medications Home Medications: Ambulatory Orders Medication Instructions Recorded Acetaminophen [Acetaminophen 8 650 mg PO Q8H #2 tablet.er 08/05/16 Hour] Ibuprofen [Motrin Tab] 800 mg PO Q6H PRN #2 tab 08/05/16 Ibuprofen [Motrin] 600 mg PO Q6 PRN #15 tab 04/10/17 Nitrofurantoin Macrocrystals 100 mg PO BID #14 cap 04/10/17 [Macrobid] Ibuprofen [Motrin] 600 mg PO Q8 PRN #21 tab 04/17/17 Pseudoephedrine [Sudafed Tab] 60 mg PO Q6 PRN #24 tab 04/17/17 Dicyclomine [Bentyl] 20 mg PO QID PRN #20 tab 09/30/17 Loperamide [Loperamide HCl] 2 mg PO DAILY PRN #10 cap 09/30/17 Ondansetron ODT [Zofran ODT] 4 mg PO DAILY PRN #20 odt 09/30/17 Sucralfate [Carafate] 1 gm PO TID PRN #30 tab 11/09/17 Docusate Sodium [Colace] 100 mg PO BID PRN #20 capsule 05/13/18 Simethicone [Gas-X] 125 mg PO QID PRN #24 ctb 05/13/18 Bacitracin Ointment [Bacitracin] 0.5 gm TOP BID #30 gm 10/17/18 Cephalexin [Keflex] 500 mg PO QID #28 cap 10/17/18 - Allergies Allergies/Adverse Reactions: Allergies Allergy/AdvReac Type Severity Reaction Status Date / Time barium iodide Allergy ITCHING Verified 11/18/18 10:44 iodine Allergy ITCHING Verified 11/18/18 10:44 latex Allergy SWELLING Verified 11/18/18 10:44 Review of Systems ROS Statement: Except As Marked, All Systems Reviewed And Found Negative Constitutional: Negative for: Fever, Chills, Sweats Cardiovascular: Positive for: Chest Pain. Negative for: Palpitations Respiratory: Negative for: Cough, Shortness of Breath Musculoskeletal: Negative for: Other (leg swelling) Physical Exam - Reviewed Nursing Documentation Reviewed: Yes Vital Signs Reviewed: Yes - Physical Exam Appears: Positive for: Non-toxic, No Acute Distress Head Exam: Positive for: ATRAUMATIC, NORMAL INSPECTION, NORMOCEPHALIC Skin: Positive for: Normal Color, Warm, DRY Eye Exam: Positive for: EOMI, Normal appearance, PERRL Neck: Positive for: Normal, Painless ROM, Supple Cardiovascular/Chest: Positive for: Regular Rate, Rhythm. Negative for: Chest Non Tender (+ mid-sternal chest tenderness) Respiratory: Positive for: Normal Breath Sounds. Negative for: Respiratory Distress Gastrointestinal/Abdominal: Positive for: Normal Exam, Soft Back: Positive for: Normal Inspection Extremity: Positive for: Normal ROM Neurological/Psych: Positive for: Awake, Alert, Normal Tone. Negative for: Motor/Sensory Deficits - Laboratory Results Result Diagrams: 11/18/18 11:40 11/18/18 11:40 - ECG O2 Sat by Pulse Oximetry: 98 (RA) Pulse Ox Interpretation: Normal Medical Decision Making Medical Decision Mak[place] female with midsternal chest pain No family history of cardiac disease Plan: -- Labs -- EKG -- CXR Pt notified of elevated LFTS. 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 Discussed extensively with patient regarding risks of leaving AMA and she expresses understanding, patient still elects to leave AMA. Copies of labs, EKG given to patient; informed to return to ER immediately if symptoms worsen or other symptoms arise. Scribe Attestation: Documented by Екатерина Holland, acting as a scribe for Marlen Josue MD. Provider Scribe Attestation: All medical record entries made by the Scribe were at my direction and personally dictated by me. I have reviewed the chart and agree that the record a ccurately reflects my personal performance of the history, physical exam, medical decision making, and the department course for this patient. I have also personally directed, reviewed, and agree with the discharge instructions and disposition. Disposition - Clinical Impression Clinical Impression: Elevated LFTs - Disposition Disposition: Against Medical Advice Disposition Time: 13:26 Condition: STABLE Forms: [employer] ([place])
[2018-11-18 11:55] LABS: BASO % 0.3 % (0.0-2.0); EOS # 0.1 K/uL (0.0-0.7); EOS % 2.1 % (0.0-4.0); HEMOGLOBIN 13.5 g/dL (12.0-16.0); LYMPH # 1.8 K/uL (1.0-4.3); LYMPH % 28.1 % (20.0-40.0); MEAN CELL VOLUME 92.8 fl (81.0-99.0); MEAN CORPUSCULAR HGB CONC 33.4 g/dL (33.0-37.0); MEAN PLATELET VOLUME 8.2 fl (7.2-11.7); MONO # 0.6 K/uL (0.0-0.8); MONO % 8.7 % (0.0-10.0); NEUT % 60.8 % (50.0-75.0); NRBC % 0.1 % (0.0-0.0); RBC 4.36 Mil/uL (3.80-5.20); RED CELL DISTRIBUTION WIDTH 12.8 % (11.5-14.5); WHITE BLOOD COUNT 6.5 K/uL (4.8-10.8)
[2018-11-18 12:00] LABS: PROTHROMBIN TIME 11.9 Seconds (9.8-13.1)
[2018-11-18 12:03] LABS: PARTIAL THROMBOPLASTIN TIME 34.4 Seconds (25.6-37.1)
[2018-11-18 12:07] LABS: ALB/GLOB RATIO 1.3 (1.0-2.1); ALBUMIN 4.5 g/dL (3.5-5.0); ALT/SGPT 361 U/L (9-52); AST/SGOT 287 U/L (14-36); BLOOD UREA NITROGEN 16 mg/dl (7-17); CALCIUM 9.6 mg/dL (8.4-10.2); GFR NON-AFRICAN AMERICAN > 60
[2018-11-18 12:21] LABS: SQUAMOUS EPITHIAL 11 /hpf (0-5); URINE BACTERIA RARE (<OCC); URINE BILIRUBIN NEGATIVE (NEGATIVE); URINE BLOOD NEGATIVE (NEGATIVE); URINE CLARITY CLOUDY (Clear); URINE COLOR YELLOW (YELLOW); URINE GLUCOSE (UA) NEG (NEGATIVE); URINE LEUKOCYTE ESTERASE SMALL Leu/uL (Negative); URINE PROTEIN NEGATIVE (NEGATIVE); URINE UROBILINOGEN 0.2-1.0 mg/dL (0.2-1.0)
[2018-11-18] MEDS ORDERED: Sodium Chloride 0.9% 50 ML IV ONE (12:35)
[2018-11-18] MEDS ORDERED: Iodixanol 320 MG/ML 100 ML BOTTLE IV ONE (12:35)
[2018-11-18 13:51] VITALS: BP 112/61; PULSE 70; RESP 18; O2SAT 99
--- NOTE | 2018-11-18 16:08 | RAD ---
Date of service: 11/18/2018 HISTORY: Midsternal CP COMPARISON: No prior. TECHNIQUE: Chest PA and lateral views FINDINGS: LUNGS: No active pulmonary disease. PLEURA: No significant pleural effusion identified. No pneumothorax apparent. CARDIOVASCULAR: No aortic atherosclerotic calcification present. Normal cardiac size. No pulmonary vascular congestion. OSSEOUS STRUCTURES: No significant abnormalities. VISUALIZED UPPER ABDOMEN: Normal. OTHER FINDINGS: None. IMPRESSION: No active disease.
--- NOTE | 2018-11-19 08:36 | CARD ---
APPROVED REPORT Date of service: 11/18/2018 EKG Measurement Heart [id number] <Conclusion> Normal sinus rhythm with sinus arrhythmia Normal ECG
== END 2018-11-18 13:40 | disposition left against medical advice (07) ==
LOC: H.ER 10:32
DX: R79.89 Other specified abnormal findings of blood chemistry (principal); J45.909 Unspecified asthma, uncomplicated
CPT/HCPCS: 71046; 80053; 81003; 81025; 84484; 85025; 85378; 85610; 85730; 93005; 99284; Q9967

== ENCOUNTER 2018-11-20 10:53 | Observation (INO) | payer OTHER ==
[2018-11-20 10:54] VITALS: BMI 25.8
[2018-11-20] MEDS ORDERED: Naproxen 500 MG TAB PO STA (11:45)
[2018-11-20] MEDS ORDERED: Pantoprazole 40 mg EC Tab PO STA (11:45)
[2018-11-20] MEDS ORDERED: raNITIdine HCl 150 mg/10 ml Soln Cup PO STA (11:45)
[2018-11-20] MEDS ORDERED: Naproxen 500 MG TAB PO ONE (12:11)
[2018-11-20] MEDS ORDERED: Pantoprazole 40 mg EC Tab PO ONE (12:11)
[2018-11-20] MEDS: Sodium Chloride 0.9% 1,000 ML IV SCH ×2 (12:26→13:22)
[2018-11-20 12:52] LABS: BASO % 0.1 % (0.0-2.0); EOS % 0.1 % (0.0-4.0); LYMPH # 0.5 K/uL (1.0-4.3); LYMPH % 5.9 % (20.0-40.0); MEAN CELL VOLUME 92.9 fl (81.0-99.0); MEAN CORPUSCULAR HEMOGLOBIN 30.9 pg (27.0-31.0); MEAN CORPUSCULAR HGB CONC 33.2 g/dL (33.0-37.0); MEAN PLATELET VOLUME 8.5 fl (7.2-11.7); MONO # 0.4 K/uL (0.0-0.8); MONO % 4.8 % (0.0-10.0); NEUT # 7.6 K/uL (1.8-7.0); NEUT % 89.1 % (50.0-75.0); NRBC % 0.1 % (0.0-0.0); PLATELET COUNT 215 K/uL (130-400); RBC 4.54 Mil/uL (3.80-5.20); RED CELL DISTRIBUTION WIDTH 12.9 % (11.5-14.5); WHITE BLOOD COUNT 8.5 K/uL (4.8-10.8)
[2018-11-20 13:00] LABS: ALB/GLOB RATIO 1.3 (1.0-2.1); ALBUMIN 4.8 g/dL (3.5-5.0); ALT/SGPT 378 U/L (9-52); AST/SGOT 255 U/L (14-36); BLOOD UREA NITROGEN 14 mg/dl (7-17); GFR NON-AFRICAN AMERICAN > 60; LIPASE 52 U/L (23-300)
--- NOTE | 2018-11-20 13:51 | US ---
Date of service: 11/20/2018 HISTORY: epigastric tenderness, n/v/d COMPARISON: None. TECHNIQUE: Sonographic evaluation of the right upper quadrant of the abdomen. FINDINGS: LIVER: Measures 19.1 cm in length. Diffuse increased echogenicity of the liver parenchyma. No mass. No intrahepatic bile duct dilatation. GALLBLADDER: Unremarkable. No gallstones. COMMON BILE DUCT: Measures 3 mm. No stones. No dilatation. PANCREAS: Unremarkable as visualized. No mass. No ductal dilatation. RIGHT KIDNEY: Measures 11.0 x 3.9 x 3.5 cm in length. Normal echogenicity. No calculus, mass, or hydronephrosis. AORTA: No aneurysmal dilatation. IVC: Unremarkable. OTHER FINDINGS: None . IMPRESSION: Hepatomegaly with diffuse increased echogenicity consistent with hepatic steatosis or other hepatocellular parenchymal pathology. No gallbladder pathology appreciated.
[2018-11-20 14:06] LABS: LYMPHOCYTE 5 % (20-50); MONOCYTE 2 % (0-10); NEUTROPHIL 91 % (42-75); PLATELET ESTIMATE NORMAL (NORMAL); TOTAL CELLS COUNTED 100
--- NOTE | 2018-11-20 14:13 | ED PDOC ---
HPI: Chest Pain Additional History Per: Patient Additional Complaint(s): This is 23 y/o F with PMH of gastritis and asthma comes to the ER second time this week c/o left side chest pain/Epigastric pain, nausea, vomiting and diarrhea. Patient reports left side chest pain started 5 days ago, radiates to epigastric area, comes and goes, gets better with lying flat, sharp in nature, not associated with any food or respiratory changes. Patient reports 1 day hx of NBNB vomiting and diarrhea. Poor PO intake. Denies any sick contact, recent travel, recent surgery, patient is vary active. Denies any fever/ chills, dysuria or weakness. Family hx + for H pylori and autoimmune disease. Denies any dizziness, SOB, headaches, blurred vision or palpitations. 2 days ago patient was found to have elevated d.dimers and LFTs. Reports social alcohol use. <Carolina Storey - Last Filed: 11/20/18 19:10> <Matias Acevedo III - Last Filed: 11/21/18 12:28> Time Seen by Provider: 11/20/18 11:28 Chief Complaint (Nursing): Weakness/Neurological Deficit Supervising Attending Note - Attestation: I have personally seen and examined this patient.: Yes I have fully participated in the care of the patient.: Yes I have reviewed all pertinent clinical information: Yes <Matais Acevedo III - Last Filed: 11/21/18 12:28> Past Medical History Vital Signs: Last Vital Signs Temp 100.0 F H 11/20/18 11:00 Pulse 107 H 11/20/18 11:00 Resp 19 11/20/18 11:00 BP 105/64 11/20/18 11:00 Pulse Ox 96 11/20/18 11:00 - Medical History PMH: Anemia, Asthma - Family History Family History: States: Unknown Family Hx - Immunization History Hx Tetanus Toxoid Vaccination: Yes (2 years ago, as per patient) Hx Influenza Vaccination: No Hx Pneumococcal Vaccination: No <Carolina Storey - Last Filed: 11/20/18 19:10> Vital Signs: Last Vital Signs Temp 98.2 F 11/21/18 09:00 Pulse 91 H 11/21/18 09:00 Resp 18 11/21/18 09:00 BP 123/75 11/21/18 09:00 Pulse Ox 97 11/21/18 09:00 <Matias Acevedo III - Last Filed: 11/21/18 12:28> - Home Medications Home Medications: Ambulatory Orders Medication Instructions Recorded No Known Home Med 11/20/18 - Allergies Allergies/Adverse Reactions: Allergies Allergy/AdvReac Type Severity Reaction Status Date / Time barium iodide Allergy ITCHING Verified 11/20/18 11:17 iodine Allergy ITCHING Verified 11/20/18 11:17 latex Allergy SWELLING Verified 11/20/18 11:17 Curb-65 Severity Score - CURB-65 Severity Score Confusion: No Bun >19mg/dl (>7mmol/L): No Respiratory Rate greater than/equal to 30: No Systolic BP <90 or Diastolic BP less than/equal 60mmHg: No Age >64: No Curb-65 Score: 0 Percentage 30-day mortality: 0.6% <Carolina Storey - Last Filed: 11/20/18 19:10> Wells Criteria for PE - Wells Criteria for Pulmonary Embolism Clinical Signs and Symptoms of DVT: No P.E is #1 Diagnosis, or Equally Likely: No Heart Rate >100: Yes Immobilization at least 3 days;Surgery previous 4 weeks: No Previous, objectively diagnosed PE or DVT: No Hemoptysis: No Malignancy w/treatment within 6 months, or palliative: No Total Score: 1.5 <Carolina Storey - Last Filed: 11/20/18 19:10> Review of Systems Constitutional: Negative for: Fever, Chills, Sweats Eyes: Negative for: Pain, Conjunctivae Inflammation ENT: Negative for: Ear Pain, Ear Discharge, Nose Pain Cardiovascular: Positive for: Chest Pain. Negative for: Palpitations, Orthopnea Respiratory: Negative for: Cough, Shortness of Breath, Hemoptysis Gastrointestinal: Positive for: Nausea, Vomiting, Abdominal Pain, Diarrhea Genitourinary Female: Negative for: Dysuria, Frequency Musculoskeletal: Negative for: Neck Pain, Shoulder Pain Skin: Negative for: Rash Neurological: Negative for: Weakness, Numbness Psych: Negative for: Anxiety <Carolina Storey - Last Filed: 11/20/18 19:10> Physical Exam - Physical Exam Appears: Positive for: No Acute Distress Head Exam: Positive for: NORMAL INSPECTION Skin: Positive for: Normal Color Eye Exam: Positive for: Normal appearance ENT: Positive for: Normal ENT Inspection Neck: Positive for: Normal Cardiovascular/Chest: Positive for: Regular Rate, Rhythm. Negative for: Murmur Respiratory: Positive for: Normal Breath Sounds. Negative for: Decreased Breath Sounds, Accessory Muscle Use, Crackles, Wheezing, Respiratory Distress Gastrointestinal/Abdominal: Positive for: Soft, Tenderness (epigastric ). Negative for: Mass, Distended, Guarding, Rebound Back: Positive for: Normal Inspection. Negative for: L CVA Tenderness, R CVA Tenderness Extremity: Positive for: Normal ROM. Negative for: Tenderness, Pedal Edema, Calf Tenderness, Deformity, Swelling Neurological/Psych: Positive for: Awake, Alert, Normal Tone, Symmetric/Intact Strength, Oriented, supervisor carton and can supply II-XII. Negative for: Lethargic, Motor/Sensory Deficits, Facial Droop <Carolina Storey - Last Filed: 11/20/18 19:10> - Laboratory Results Result Diagrams: 11/20/18 12:13 11/20/18 12:13 Lab Results: D-Dimer, Quantitative 468 ng/mlDDU (0-230) H 11/20/18 12:13 Troponin I < 0.0120 ng/mL (0.00-0.120) 11/20/18 12:13 Total Bilirubin 0.7 mg/dl (0.2-1.3) 11/20/18 12:13 AST 255 U/L (14-36) H 11/20/18 12:13 ALT 378 U/L (9-52) H 11/20/18 12:13 Alkaline Phosphatase 81 U/L (38-126) 11/20/18 12:13 Total Protein 8.4 G/DL (6.3-8.2) H 11/20/18 12:13 Albumin 4.8 g/dL (3.5-5.0) 11/20/18 12:13 Globulin 3.6 gm/dL (2.2-3.9) 11/20/18 12:13 Albumin/Globulin Ratio 1.3 (1.0-2.1) 11/20/18 12:13 Lipase 52 U/L (23-300) 11/20/18 12:13 - ECG O2 Sat by Pulse Oximetry: 96 - Progress ED Course And Treament: A/P: 23 y/o F with PMH of gastritis and asthma comes to the ER second time this week c/o left side chest pain/Epigastric pain, nausea, vomiting and diarrhea. - CBC - CMP - Lipase - Trop - UA - Urine preg - D.dimer - EKG - CXR - U/S abdo - Zofran - NSAID - Pepcid - Protonix - Reevaluation Case discussed with Dr. Young Labs reviewed Elevated LFTS and D.dimer High unlike DVT/PE U/S abdo: Hepatic steatosis Patient understands and agrees with plan U/S LEs: Negative Spoke with Dr. Stinson for Tele obs : "Start Lovenox" Patient understands and agrees with admission Re-evaluation Time: 15:14 Condition: Improved <Carolina Storey - Last Filed: 11/20/18 19:10> - Laboratory Results Result Diagrams: 11/21/18 06:35 11/21/18 06:35 Lab Results: PT 13.1 Seconds (9.8-13.1) 11/21/18 06:35 INR 1.2 11/21/18 06:35 APTT 37.5 Seconds (25.6-37.1) H 11/21/18 06:35 D-Dimer, Quantitative 468 ng/mlDDU (0-230) H 11/20/18 12:13 Troponin I < 0.0120 ng/mL (0.00-0.120) 11/21/18 06:35 Total Bilirubin 0.4 mg/dl (0.2-1.3) 11/21/18 06:35 AST 169 U/L (14-36) H D 11/21/18 06:35 ALT 290 U/L (9-52) H D 11/21/18 06:35 Alkaline Phosphatase 99 U/L (38-126) 11/21/18 06:35 Total Protein 7.2 G/DL (6.3-8.2) 11/21/18 06:35 Albumin 4.0 g/dL (3.5-5.0) 11/21/18 06:35 Globulin 3.2 gm/dL (2.2-3.9) 11/21/18 06:35 Albumin/Globulin Ratio 1.2 (1.0-2.1) 11/21/18 06:35 Lipase 52 U/L (23-300) 11/20/18 12:13 <Matias Acevedo III - Last Filed: 11/21/18 12:28> Medical Decision Making Medical Decision Making: R/o PE/gastroenteritis/Hepatic steatosis/Gastritis <Carolina Storey - Last Filed: 11/20/18 19:10> Medical Decision Making: unable to obtain CTA chest given allergies. Given repeat ED visits with similar unresolved symptoms, mild tachycardia, will initiate anticoagulation and admit Obs for VQ in morning. <Matias Acevedo III - Last Filed: 11/21/18 12:28> Disposition - Patient ED Disposition Is Patient to be Admitted: Yes - Disposition Disposition Time: 15:17 <Carolina Storey - Last Filed: 11/20/18 19:10> <Matias Acevedo III - Last Filed: 11/21/18 12:28> - Clinical Impression Clinical Impression: Elevated LFTs, Hepatic steatosis, Gastroenteritis, Gastritis - Disposition Condition: STABLE
[2018-11-20 14:51] LABS: BANDS 2 % (0-2)
--- NOTE | 2018-11-20 17:10 | RAD ---
HISTORY: chest pain COMPARISON: Chest x-ray performed 11/18/18 TECHNIQUE: Chest, one view. FINDINGS: Examination limited by habitus and hypoinflation. LUNGS: No focal consolidation. Please note that chest x-ray has limited sensitivity for the detection of pulmonary masses. PLEURA: No significant pleural effusion identified. No definite pneumothorax . CARDIOVASCULAR: The cardiomediastinal silhouette appears within normal limits of size. No significant atherosclerotic calcification present. OSSEOUS STRUCTURES: No acute osseous abnormality identified. VISUALIZED UPPER ABDOMEN: Unremarkable. OTHER FINDINGS: None. IMPRESSION: No focal consolidation.
--- NOTE | 2018-11-20 18:05 | US ---
Date of service: 11/20/2018 PROCEDURE: Bilateral lower extremity venous duplex Doppler. HISTORY: Chest pain/Fever/Elevated d.dimer COMPARISON: None available. TECHNIQUE: Bilateral common femoral, superficial femoral, popliteal and posterior tibial veins were evaluated. Flow was assessed with color Doppler, compressibility, assessment of phasic flow and augmentation response. FINDINGS: COMMON FEMORAL VEIN: Right CFV: Unremarkable. Left CFV: Unremarkable. SUPERFICIAL FEMORAL VEIN: Right SFV: Unremarkable. Left SFV: Unremarkable. POPLITEAL VEIN: Right Popliteal: Unremarkable. Left Popliteal: Unremarkable. POSTERIOR TIBIAL VEIN: Right PTV: Unremarkable. Left PTV: Unremarkable. OTHER FINDINGS: None. IMPRESSION: No evidence of deep venous thrombosis.
[2018-11-20] MEDS ORDERED: Alum-Mag Hydrox-Simethicone Susp (30 mL) PO ONE (18:41)
[2018-11-20] MEDS ORDERED: Enoxaparin 60 mg Syringe SC STA (19:04)
--- NOTE | 2018-11-20 19:30 | CARD ---
APPROVED REPORT Date of service: 11/20/2018 EKG Measurement Heart [id number] <Conclusion> Sinus tachycardia Otherwise normal ECG
[2018-11-20] MEDS ORDERED: Alum-Mag Hydrox-Simethicone Susp (30 mL) ONE (19:33)
[2018-11-20] MEDS ORDERED: Enoxaparin 80 mg Syringe SC STA (19:39)
[2018-11-20] MEDS ORDERED: Enoxaparin 80 mg Syringe SC SCH (21:00)
[2018-11-21 06:48] LABS: HEMOGLOBIN 12.8 g/dL (12.0-16.0); MEAN CELL VOLUME 92.2 fl (81.0-99.0); MEAN CORPUSCULAR HEMOGLOBIN 30.8 pg (27.0-31.0); MEAN CORPUSCULAR HGB CONC 33.4 g/dL (33.0-37.0); RBC 4.15 Mil/uL (3.80-5.20); RED CELL DISTRIBUTION WIDTH 12.8 % (11.5-14.5); WHITE BLOOD COUNT 4.3 K/uL (4.8-10.8)
[2018-11-21 07:02] LABS: INR 1.2; PROTHROMBIN TIME 13.1 Seconds (9.8-13.1)
[2018-11-21 07:03] LABS: ALB/GLOB RATIO 1.2 (1.0-2.1); ALT/SGPT 290 U/L (9-52); AST/SGOT 169 U/L (14-36); BLOOD UREA NITROGEN 13 mg/dl (7-17); CALCIUM 8.9 mg/dL (8.4-10.2); GFR NON-AFRICAN AMERICAN > 60; HDL CHOLESTEROL 28 MG/DL (30-70)
[2018-11-21 07:04] LABS: PARTIAL THROMBOPLASTIN TIME 37.5 Seconds (25.6-37.1)
[2018-11-21 07:08] LABS: LDL CHOLESTEROL 76 mg/dL (0-129)
[2018-11-21] MEDS ORDERED: Enoxaparin 60 mg Syringe SC SCH (09:00)
[2018-11-21] MEDS ORDERED: Iodixanol 320 MG/ML 100 ML BOTTLE IV ONE (11:42)
[2018-11-21] MEDS ORDERED: Sodium Chloride 0.9% 0 ML IV ONE (11:42)
[2018-11-21 11:55] LABS: OPIATES, UR NEGATIVE (NEGATIVE)
--- NOTE | 2018-11-21 12:04 | NM ---
Date of service: 11/21/2018 COMPARISON: November 20, 2018. Single-view chest. November 20, 2018. Bilateral lower extremity duplex venous sonography. Summary of findings on the comparison examination: No evidence of deep venous thrombosis. TECHNIQUE: 40.7 mCi technetium 99-m DTPA aerosol. 5.32 mCI technetium 99-m MAA administered intravenously. FINDINGS: VENTILATION COMPONENT: Normal.Retention of radionuclide in the tracheobronchial tree and ingestion of radionuclide in the stomach, incidental findings PERFUSION COMPONENT: Heterogeneous distribution of radionuclide. No geographic, segmental, lobar abnormalities apparent on the present examination. IMPRESSION: Low probability ventilation perfusion scan for pulmonary embolism.
[2018-11-21] MEDS: Pantoprazole 40 mg EC Tab PO SCH (12:18)
[2018-11-21] MEDS: Enoxaparin 80 mg Syringe SC SCH ×2 (12:18→20:45)
[2018-11-21 12:22] LABS: BARBITURATES, UR NEGATIVE (NEGATIVE); BENZODIAZEPINES, UR NEGATIVE (NEGATIVE); PHENCYCLIDINE, UR NEGATIVE (NEGATIVE)
--- NOTE | 2018-11-21 14:55 | CP.PCM.HP ---
History of Present Illness - History of Present Illness History of Present Illness: CC: Chest pain/Abdominal pain. 23 y/o F, with PMHx: Asthma, Anemia, [facility] Chest pain L sided, intermittent episodes and also c/o of pain radiated to epigastric area associated to nausea/vomiting NBNB/diarrhea, abdominal pain described and intermittent, sharp, severe i ntensity 10:10, Pt not taking any medication and no improvement. Worsening symptoms: Weakness since yesterday, poor po intake, found with elevated D-Dimers 468, LFTs elevated. Pt was seen in the ER yesterday Aggravated factor: Exercise, ADL's. Pt denied: Fever, chills, syncope, dizziness, fall, back pain, urinary symptoms, sick contact, recent travel out of [facility]. CXR: No focal consolidation. Abd U-S: Hepatomegaly with increased echogenicity with hepatic steatosis or other hepatocellular pathology. Ext U-S: No DVT. Lung Scan VQ: No evidence of PE. Present on Admission - Present on Admission Any Indicators Present on Admission: No Review of Systems - Constitutional Constitutional: absent: Chills, Fever, Headache, Night Sweats - EENT Eyes: Requires Corrective Lenses Ears: Other (negative) Nose/Mouth/Throat: Other (negative) - Cardiovascular Cardiovascular: Chest Pain, Radiating Pain, Rapid Heart Rate - Respiratory Respiratory: Other (negative) - Gastrointestinal Gastrointestinal: Abdominal Pain, Diarrhea, Nausea, Vomiting - Genitourinary Genitourinary: Other (negative) - Musculoskeletal Musculoskeletal: Other (negative) - Integumentary Integumentary: Other (negative) - Neurological Neurological: Other (negative) - Psychiatric Psychiatric: Other (negative) - Endocrine Endocrine: Other (negative) - Hematologic/Lymphatic Hematologic: Other (negative) Past Patient History - Infectious Disease Hx of Infectious Diseases: None - Past Medical History & Family History Past Medical History?: Yes Pertinent Family History: Unknown - Past Social History Smoking Status: Never Smoked Alcohol: None Drugs: Denies Home Situation {Lives}: Alone - CARDIAC Hx Cardiac Disorders: No - PULMONARY Hx Respiratory Disorders: Yes Hx Asthma: Yes - NEUROLOGICAL Hx Neurological Disorder: No - HEENT Hx HEENT Problems: Yes (Wear eyeglasses) - RENAL Hx Chronic Kidney Disease: No - ENDOCRINE/METABOLIC Hx Endocrine Disorders: No - HEMATOLOGICAL/ONCOLOGICAL Hx Blood Disorders: Yes Hx Anemia: Yes - INTEGUMENTARY Hx Dermatological Problems: No - MUSCULOSKELETAL/RHEUMATOLOGICAL Hx Musculoskeletal Disorders: No Hx Falls: No - GASTROINTESTINAL Hx Gastrointestinal Disorders: No - GENITOURINARY/GYNECOLOGICAL Hx Genitourinary Disorders: No - PSYCHIATRIC Hx Psychophysiologic Disorder: No Hx Substance Use: No - SURGICAL HISTORY Hx Surgeries: No - ANESTHESIA Hx Anesthesia: No Meds Allergies/Adverse Reactions: Allergies Allergy/AdvReac Type Severity Reaction Status Date / Time barium iodide Allergy ITCHING Verified 11/20/18 11:17 iodine Allergy ITCHING Verified 11/20/18 11:17 latex Allergy SWELLING Verified 11/20/18 11:17 Physical Exam - Constitutional Appears: No Acute Distress - Head Exam Head Exam: NORMAL INSPECTION - Eye Exam Eye Exam: PERRL - ENT Exam ENT Exam: Normal Exam - Neck Exam Neck exam: Positive for: Normal Inspection - Respiratory Exam Respiratory Exam: NORMAL BREATHING PATTERN - Cardiovascular Exam Cardiovascular Exam: REGULAR RHYTHM - GI/Abdominal Exam GI & Abdominal Exam: Normal Bowel Sounds, Soft, Tenderness (mild epigastric area) - Extremities Exam Extremities exam: Positive for: normal inspection - Back Exam Back exam: NORMAL INSPECTION - Neurological Exam Neurological exam: Alert, Oriented x3 Additional comments: No motor sensory deficit, no facial droop. - Psychiatric Exam Psychiatric exam: Normal Mood - Skin Skin Exam: Warm Results - Vital Signs Recent Vital Signs: Last Vital Signs Temp 97.8 F 11/21/18 12:00 Pulse 89 11/21/18 12:00 Resp 18 11/21/18 12:00 BP 109/73 11/21/18 12:00 Pulse Ox 96 11/21/18 12:00 kirby Champion - Labs Result Diagrams: 11/21/18 06:35 11/21/18 06:35 Labs: Laboratory Results - last 24 hr 11/21/18 11/21/18 11/21/18 06:35 06:35 06:35 WBC 4.3 L RBC 4.15 Hgb 12.8 Hct 38.3 MCV 92.2 MCH 30.8 MCHC 33.4 RDW 12.8 Plt Count 174 PT 13.1 INR 1.2 APTT 37.5 H Sodium 139 Potassium 3.7 Chloride 105 Carbon Dioxide 24 Anion Gap 14 BUN 13 Creatinine 0.6 L Est GFR ( Amer) > 60 Est GFR (Non-Af Amer) > 60 Random Glucose 110 H Calcium 8.9 Total Bilirubin 0.4 AST 169 H D ALT 290 H D Alkaline Phosphatase 99 Troponin I < 0.0120 Total Protein 7.2 Albumin 4.0 Globulin 3.2 Albumin/Globulin Ratio 1.2 Triglycerides 106 Cholesterol 125 LDL Cholesterol Direct 76 HDL Cholesterol 28 L Thyroxine (T4) 9.01 TSH 3rd Generation 1.03 Urine Opiates Screen Urine Methadone Screen Ur Barbiturates Screen Ur Phencyclidine Scrn Ur Amphetamines Screen U Benzodiazepines Scrn U Oth Cocaine Metabols U Cannabinoids Screen 11/21/18 11/21/18 11:13 13:55 WBC RBC Hgb Hct MCV MCH MCHC RDW Plt Count PT INR APTT Sodium Potassium Chloride Carbon Dioxide Anion Gap BUN Creatinine Est GFR ( Amer) Est GFR (Non-Af Amer) Random Glucose Calcium Total Bilirubin AST ALT Alkaline Phosphatase Troponin I < 0.0120 Total Protein Albumin Globulin Albumin/Globulin Ratio Triglycerides Cholesterol LDL Cholesterol Direct HDL Cholesterol Thyroxine (T4) TSH 3rd Generation Urine Opiates Screen Negative Urine Methadone Screen Negative Ur Barbiturates Screen Negative Ur Phencyclidine Scrn Negative Ur Amphetamines Screen Negative U Benzodiazepines Scrn Negative U Oth Cocaine Metabols Negative U Cannabinoids Screen Negative reviewed J.P. - EKG Data EKG comments: reviewed J.P. - Imaging and Cardiology Venous US Status: Report reviewed by me (Jaycee) US - abdomen Status: Report reviewed by me (Jaycee) Lung Scan VQ Status: Report reviewed by me Assessment & Plan (1) Abdominal pain Status: Acute Priority: High (2) Chest pain Status: Acute Priority: High (3) Elevated LFTs Status: Acute Priority: High (4) D-dimer, elevated Status: Acute Priority: High (5) Diabetes mellitus Status: Chronic Priority: Medium - Assessment and Plan (Free Text) Plan: F/U Echo, Chest Angio, Hepatitis panel, Blood C-S, U C-S, continue lovenox, Protonix, Cardiology and GI consult. - Date & Time Date: 11/21/18 Time: 10:40
[2018-11-21 16:45] LABS: HEPATITIS B SURFACE AG Negative (NEGATIVE)
[2018-11-21 16:52] LABS: HEPATITIS A IGM NEGATIVE (NEGATIVE); HEPATITIS B CORE AB NEGATIVE (NEGATIVE)
[2018-11-21 17:03] LABS: HEPATITIS C ANTIBODY NEGATIVE (NEGATIVE)
--- NOTE | 2018-11-21 20:22 | CARD ---
APPROVED REPORT Date of service: 11/21/2018 EXAM: Two-dimensional and M-mode echocardiogram with Doppler and color Doppler. Other Information Quality : GoodRhythm : NSR INDICATION Chest Pain 2D DIMENSIONS IVSd0.92 (0.7-1.1cm)LVDd4.64 (3.9-5.9cm) LVOT Diameter1.91 (1.8-2.4cm)PWd0.92 (0.7-1.1cm) IVSs1.33 (0.8-1.2cm)LVDs3.12 (2.5-4.0cm) FS (%) 32.9 %PWs1.31 (0.8-1.2cm) M-Mode DIMENSIONS Left Atrium (MM)3.37 (2.5-4.0cm)IVSd1.16 (0.7-1.1cm) Aortic Root2.63 (2.2-3.7cm)LVDd4.86 (4.0-5.6cm) Aortic Cusp Exc.1.93 (1.5-2.0cm)PWd1.00 (0.7-1.1cm) IVSs1.29 cmFS (%) 35 % LVDs3.17 (2.0-3.8cm)PWs1.16 cm Aortic Valve AoV Peak Bvnqlzeu842.4cm/sAoV VTI18.1cmAO Peak GR.4mmHg LVOT Peak Mhxepigh10.2cm/sLVOT VTI16.11cmAO Mean GR.2mmHg FREDERICK (VMAX)1.50cp3UXF (VTI)1.40cm2 Mitral Valve MV E Adeprshf56.2cm/sMV DECEL [id number] A Gmjkcnpi01.7cm/s MV KMR18vxH/A ratio1.8MVA (PHT)4.76cm2 TDI Lateral E' Peak V13.53cm/sMedial E' Peak V10.27cm/sE/Lateral E'6.2 E/Medial E'8.2 Tricuspid Valve TR Peak Txjntmcb540fe/sRAP [id number] Peak Gr.14mmHg VSHS38bxSs LEFT VENTRICLE The left ventricle is normal size. There is normal left ventricular wall thickness. The left ventricular systolic function is normal. The estimated ejection fraction is 55-60% No regional wall motion abnormalities noted.. The left ventricular diastolic function is normal. No left ventricle thrombus noted on this study. There is no ventricular septal defect visualized. There is no left ventricular aneurysm. There is no mass noted in the left ventricle. RIGHT VENTRICLE The right ventricle is normal size. There is normal right ventricular wall thickness. The right ventricular systolic function is normal. ATRIA The left atrium size is normal. The right atrium size is normal. The interatrial septum is intact with no evidence for an atrial septal defect. AORTIC VALVE The aortic valve is normal in structure. No aortic regurgitation is present. There is no aortic valvular stenosis. There is no aortic valvular vegetation. MITRAL VALVE The mitral valve is normal in structure. There is no evidence of mitral valve prolapse. There is no mitral valve stenosis. There is mild mitral valve regurgitation noted. TRICUSPID VALVE The tricuspid valve is normal in structure. There is mild tricuspid valve regurgitation noted. RVSP is calculated at 20 mm Hg. There is no tricuspid valve prolapse or vegetation. There is no tricuspid valve stenosis. PULMONIC VALVE The pulmonary valve is normal in structure. There is no pulmonic valvular regurgitation. There is no pulmonic valvular stenosis. GREAT VESSELS The aortic root is normal in size. The ascending aorta is normal in size. The pulmonary artery is normal. The IVC is normal in size and collapses >50% with inspiration. PERICARDIAL EFFUSION There is no pericardial effusion. There is no pleural effusion. <Conclusion> The estimated ejection fraction is 55-60% The left ventricular diastolic function is normal. The left atrium size is normal. There is mild mitral valve regurgitation noted. There is mild tricuspid valve regurgitation noted. RVSP is calculated at 20 mm Hg.
--- NOTE | 2018-11-21 23:04 | CP.PCM.CON ---
History of Present Illness - History of Present Illness History of Present Illness: 23 yo female admitted ater epigastric and chest pain over the past few days. found to have elevated transminases though hepatitis profile is negative. W/u for thrombosis so far negatine. denies any nutritional supplements or meds. also has been having nausea and vomiting during this time. Review of Systems - Constitutional Constitutional: absent: Chills - EENT Eyes: absent: Blurred Vision Ears: absent: Decreased Hearing Nose/Mouth/Throat: absent: Epistaxis - Cardiovascular Cardiovascular: Chest Pain - Respiratory Respiratory: absent: Cough - Gastrointestinal Gastrointestinal: As Per HPI - Genitourinary Genitourinary: absent: Change in Urinary Stream Past Patient History - Infectious Disease Hx of Infectious Diseases: None - Past Medical History & Family History Past Medical History?: Yes - Past Social History Smoking Status: Never Smoked Alcohol: None Drugs: Denies Home Situation {Lives}: Alone - CARDIAC Hx Cardiac Disorders: No - PULMONARY Hx Respiratory Disorders: Yes Hx Asthma: Yes - NEUROLOGICAL Hx Neurological Disorder: No - HEENT Hx HEENT Problems: Yes (Wear eyeglasses) - RENAL Hx Chronic Kidney Disease: No - ENDOCRINE/METABOLIC Hx Endocrine Disorders: No - HEMATOLOGICAL/ONCOLOGICAL Hx Blood Disorders: Yes Hx Anemia: Yes - INTEGUMENTARY Hx Dermatological Problems: No - MUSCULOSKELETAL/RHEUMATOLOGICAL Hx Musculoskeletal Disorders: No Hx Falls: No - GASTROINTESTINAL Hx Gastrointestinal Disorders: No - GENITOURINARY/GYNECOLOGICAL Hx Genitourinary Disorders: No - PSYCHIATRIC Hx Psychophysiologic Disorder: No Hx Substance Use: No - SURGICAL HISTORY Hx Surgeries: No - ANESTHESIA Hx Anesthesia: No Meds Allergies/Adverse Reactions: Allergies Allergy/AdvReac Type Severity Reaction Status Date / Time barium iodide Allergy ITCHING Verified 11/20/18 11:17 iodine Allergy ITCHING Verified 11/20/18 11:17 latex Allergy SWELLING Verified 11/20/18 11:17 - Medications Medications: Current Medications Dicyclomine HCl (Bentyl) 20 mg PO TID PRN PRN Reason: pain 1-7 Last Admin: 11/21/18 20:43 Dose: 20 mg Enoxaparin Sodium (Lovenox) 70 mg SC Q12 [facility]; Protocol Last Admin: 11/21/18 20:45 Dose: 70 mg Pantoprazole Sodium (Protonix Ec Tab) 40 mg PO DAILY [facility] Last Admin: 11/21/18 12:18 Dose: 40 mg Physical Exam - Constitutional Appears: No Acute Distress - Head Exam Head Exam: ATRAUMATIC - Eye Exam Eye Exam: Normal appearance - Neck Exam Neck exam: Positive for: Normal Inspection - Respiratory Exam Respiratory Exam: Clear to Auscultation Bilateral - Cardiovascular Exam Cardiovascular Exam: REGULAR RHYTHM, +S1, +S2 - GI/Abdominal Exam GI & Abdominal Exam: Normal Bowel Sounds, Soft, Tenderness Results - Vital Signs Recent Vital Signs: Last Vital Signs Temp 99.2 F 11/21/18 19:29 Pulse 90 11/21/18 19:29 Resp 17 11/21/18 19:29 BP 112/73 11/21/18 19:29 Pulse Ox 99 11/21/18 19:29 - Labs Result Diagrams: 11/21/18 06:35 11/21/18 06:35 Labs: Laboratory Results - last 24 hr 11/21/18 11/21/18 11/21/18 06:35 06:35 06:35 WBC 4.3 L RBC 4.15 Hgb 12.8 Hct 38.3 MCV 92.2 MCH 30.8 MCHC 33.4 RDW 12.8 Plt Count 174 PT 13.1 INR 1.2 APTT 37.5 H Sodium 139 Potassium 3.7 Chloride 105 Carbon Dioxide 24 Anion Gap 14 BUN 13 Creatinine 0.6 L Est GFR ( Amer) > 60 Est GFR (Non-Af Amer) > 60 Random Glucose 110 H Calcium 8.9 Total Bilirubin 0.4 AST 169 H D ALT 290 H D Alkaline Phosphatase 99 Troponin I < 0.0120 Total Protein 7.2 Albumin 4.0 Globulin 3.2 Albumin/Globulin Ratio 1.2 Triglycerides 106 Cholesterol 125 LDL Cholesterol Direct 76 HDL Cholesterol 28 L Thyroxine (T4) 9.01 TSH 3rd Generation 1.03 Urine Opiates Screen Urine Methadone Screen Ur Barbiturates Screen Ur Phencyclidine Scrn Ur Amphetamines Screen U Benzodiazepines Scrn U Oth Cocaine Metabols U Cannabinoids Screen Hepatitis A IgM Ab Hep Bs Antigen Hep B Core IgM Ab Hepatitis C Antibody 11/21/18 11/21/18 11/21/18 10:17 11:13 13:55 WBC RBC Hgb Hct MCV MCH MCHC RDW Plt Count PT INR APTT Sodium Potassium Chloride Carbon Dioxide Anion Gap BUN Creatinine Est GFR ( Amer) Est GFR (Non-Af Amer) Random Glucose Calcium Total Bilirubin AST ALT Alkaline Phosphatase Troponin I < 0.0120 Total Protein Albumin Globulin Albumin/Globulin Ratio Triglycerides Cholesterol LDL Cholesterol Direct HDL Cholesterol Thyroxine (T4) TSH 3rd Generation Urine Opiates Screen Negative Urine Methadone Screen Negative Ur Barbiturates Screen Negative Ur Phencyclidine Scrn Negative Ur Amphetamines Screen Negative U Benzodiazepines Scrn Negative U Oth Cocaine Metabols Negative U Cannabinoids Screen Negative Hepatitis A IgM Ab Negative Hep Bs Antigen Negative Hep B Core IgM Ab Negative Hepatitis C Antibody Negative 11/21/18 21:15 WBC RBC Hgb Hct MCV MCH MCHC RDW Plt Count PT INR APTT Sodium Potassium Chloride Carbon Dioxide Anion Gap BUN Creatinine Est GFR ( Amer) Est GFR (Non-Af Amer) Random Glucose Calcium Total Bilirubin AST ALT Alkaline Phosphatase Troponin I < 0.0120 Total Protein Albumin Globulin Albumin/Globulin Ratio Triglycerides Cholesterol LDL Cholesterol Direct HDL Cholesterol Thyroxine (T4) TSH 3rd Generation Urine Opiates Screen Urine Methadone Screen Ur Barbiturates Screen Ur Phencyclidine Scrn Ur Amphetamines Screen U Benzodiazepines Scrn U Oth Cocaine Metabols U Cannabinoids Screen Hepatitis A IgM Ab Hep Bs Antigen Hep B Core IgM Ab Hepatitis C Antibody Assessment & Plan (1) Elevated LFTs Assessment and Plan: Viral serorology for hepatitis A,B,C negative. R/o other viruses such as EBV or CMV. Has been improving from first to second lab. Status: Acute Priority: High (2) Abdominal pain Assessment and Plan: So far the cause of the epigastric pain unclear. Will do upper endoscopy in the morning to r/o ulcer or gastritis. Status: Acute Priority: High
[2018-11-21] MEDS ORDERED: Lactated Ringer's 1,000 ML IV SCH (23:15)
[2018-11-22] MEDS ORDERED: Lactated Ringer's 500 ML IV ONE (08:31)
[2018-11-22 09:25] VITALS: BP 108/70
--- NOTE | 2018-11-22 11:10 | CP.PCM.CON ---
History of Present Illness - History of Present Illness History of Present Illness: Tiffanie Norwood, PGY-1, Cardiology Consult Note for Dr. Garcia 23 year old female with past medical history of asthma presents with sharp, intermittent chest pain that started Sunday. Patient reports this chest pain radiated to the substernal region, had no exacerbating factors but remitted with laying back. Patient also reported that she had weakness, shortness of breath, fever, diarrhea, and vomitted 5 times on Sunday prior to arrival at the hospital. Patient denies diaphoresis, left arm pain, jaw pain. PMH: asthma PSH: denies DMHx: Mother has leaky valve, Grandmother from [place] at 70 SHx: denies alcohol, tobacco, and recreational drug use Allergies: barium contrast, latex PMD: Dr. Kirby Review of Systems - Review of Systems Review of Systems: except as mentioned in HPI Past Patient History - Infectious Disease Hx of Infectious Diseases: None - Past Medical History & Family History Past Medical History?: Yes - Past Social History Smoking Status: Never Smoked Alcohol: None Drugs: Denies Home Situation {Lives}: Alone - CARDIAC Hx Cardiac Disorders: No - PULMONARY Hx Respiratory Disorders: Yes Hx Asthma: Yes - NEUROLOGICAL Hx Neurological Disorder: No - HEENT Hx HEENT Problems: Yes (Wear eyeglasses) - RENAL Hx Chronic Kidney Disease: No - ENDOCRINE/METABOLIC Hx Endocrine Disorders: No - HEMATOLOGICAL/ONCOLOGICAL Hx Blood Disorders: Yes Hx Anemia: Yes - INTEGUMENTARY Hx Dermatological Problems: No - MUSCULOSKELETAL/RHEUMATOLOGICAL Hx Musculoskeletal Disorders: No Hx Falls: No - GASTROINTESTINAL Hx Gastrointestinal Disorders: No - GENITOURINARY/GYNECOLOGICAL Hx Genitourinary Disorders: No - PSYCHIATRIC Hx Psychophysiologic Disorder: No Hx Substance Use: No - SURGICAL HISTORY Hx Surgeries: No - ANESTHESIA Hx Anesthesia: No Meds Allergies/Adverse Reactions: Allergies Allergy/AdvReac Type Severity Reaction Status Date / Time barium iodide Allergy ITCHING Verified 11/20/18 11:17 iodine Allergy ITCHING Verified 11/20/18 11:17 latex Allergy SWELLING Verified 11/20/18 11:17 - Medications Medications: Current Medications Dicyclomine HCl (Bentyl) 20 mg PO TID PRN PRN Reason: pain 1-7 Last Admin: 11/21/18 20:43 Dose: 20 mg Enoxaparin Sodium (Lovenox) 70 mg SC Q12 [facility]; Protocol Last Admin: 11/21/18 20:45 Dose: 70 mg Lactated Ringer's (Lactated Ringer's) 1,000 mls @ 60 mls/hr IV .[id number] [facility] Last Admin: 11/21/18 23:52 Dose: 60 mls/hr Pantoprazole Sodium (Protonix Ec Tab) 40 mg PO DAILY [facility] Last Admin: 11/21/18 12:18 Dose: 40 mg Physical Exam - Constitutional Appears: Well, Non-toxic, No Acute Distress - Head Exam Head Exam: ATRAUMATIC, NORMAL INSPECTION, NORMOCEPHALIC - Eye Exam Eye Exam: EOMI, PERRL - ENT Exam ENT Exam: Mucous Membranes Moist - Respiratory Exam Respiratory Exam: Clear to Auscultation Bilateral, NORMAL BREATHING PATTERN - Cardiovascular Exam Cardiovascular Exam: REGULAR RHYTHM, RRR, +S1, +S2 - GI/Abdominal Exam GI & Abdominal Exam: Normal Bowel Sounds, Soft, Tenderness - Extremities Exam Extremities exam: Positive for: full ROM, normal inspection. Negative for: pedal edema - Neurological Exam Neurological exam: Alert, CN II-XII Intact, Oriented x3 - Skin Skin Exam: Dry, Intact Results - Vital Signs Recent Vital Signs: Last Vital Signs Temp 97 F L 11/22/18 09:20 Pulse 108 H 11/22/18 09:20 Resp 18 11/22/18 09:20 BP 108/70 11/22/18 09:20 Pulse Ox 99 11/22/18 09:20 - Labs Result Diagrams: 11/21/18 06:35 11/21/18 06:35 Labs: Laboratory Results - last 24 hr 11/21/18 11/21/18 11/21/18 10:17 11:13 13:55 Troponin I < 0.0120 Urine Opiates Screen Negative Urine Methadone Screen Negative Ur Barbiturates Screen Negative Ur Phencyclidine Scrn Negative Ur Amphetamines Screen Negative U Benzodiazepines Scrn Negative U Oth Cocaine Metabols Negative U Cannabinoids Screen Negative Hepatitis A IgM Ab Negative Hep Bs Antigen Negative Hep B Core IgM Ab Negative Hepatitis C Antibody Negative 11/21/18 21:15 Troponin I < 0.0120 Urine Opiates Screen Urine Methadone Screen Ur Barbiturates Screen Ur Phencyclidine Scrn Ur Amphetamines Screen U Benzodiazepines Scrn U Oth Cocaine Metabols U Cannabinoids Screen Hepatitis A IgM Ab Hep Bs Antigen Hep B Core IgM Ab Hepatitis C Antibody Assessment & Plan (1) Gastroenteritis Assessment and Plan: Due to patient's severe gastroenteritis, patient had endoscopy today showing chronic gastritis and duodenitis. Follow GI recommendations for gastroenteritis. Status: Acute (2) Chest pain Assessment and Plan: EKG shows sinus tachycardia Tropx4 is unremarkable Echocardiogram is unremarkable Chest pain is unlikely due to cardiac causes. Status: Acute Priority: High (3) D-dimer, elevated Assessment and Plan: D-dimer elevated at 468 V/Q scan shows low probability of PE Status: Acute Priority: High (4) Elevated LFTs Assessment and Plan: Abdominal Ultrasound: hepatomegaly with diffuse increased echogenicity consistent with hepatic steatosis LFTs downtrending today Unlikely 2/2 to cardiac cause Continue to follow GI recommendations Status: Acute Priority: High - Date & Time Date: 11/22/18 Time: 11:11
[2018-11-22 11:19] LABS: ALB/GLOB RATIO 1.3 (1.0-2.1); ALBUMIN 4.1 g/dL (3.5-5.0); ALT/SGPT 283 U/L (9-52); AST/SGOT 185 U/L (14-36); BLOOD UREA NITROGEN 10 mg/dl (7-17); CALCIUM 9.1 mg/dL (8.4-10.2); GFR NON-AFRICAN AMERICAN > 60
[2018-11-22] MEDS: Pantoprazole 40 mg EC Tab PO SCH (12:22)
[2018-11-22] MEDS ORDERED: Potassium Chloride 20 mEq ER Tab PO ONE (12:27)
[2018-11-22 12:30] VITALS: PULSE 92; RESP 20; TEMP 97.8; O2SAT 94
[2018-11-22 13:27] LABS: SQUAMOUS EPITHIAL 8 /hpf (0-5); URINE BACTERIA RARE (<OCC); URINE BILIRUBIN NEGATIVE (NEGATIVE); URINE BLOOD NEGATIVE (NEGATIVE); URINE CLARITY SLIGHTY-CLOUDY (Clear); URINE COLOR YELLOW (YELLOW); URINE GLUCOSE (UA) NEG (NEGATIVE); URINE LEUKOCYTE ESTERASE NEG Leu/uL (Negative); URINE PROTEIN NEGATIVE (NEGATIVE)
--- NOTE | 2018-11-22 13:30 | CP.PCM.DIS ---
Provider - Provider Date of Admission: 11/20/18 19:01 Attending physician: Kush Stinson MD Primary care physician: Shaik Mirta ADDISON Consults: 11/21/18 09:57 Gastroenterology Consult Routine Comment: Consulting Provider: Mark Huang Consulting Physician: Mark Huang Reason for Consult: hepatic steatosis; cp; epigastric pain 11/21/18 11:15 Cardiology Consult Routine Comment: Consulting Provider: Freddy Garcia Consulting Physician: Freddy Garcia Reason for Consult: cp Diagnosis - Discharge Diagnosis (1) Abdominal pain Status: Acute Priority: High (2) Chest pain Status: Acute Priority: High (3) Elevated LFTs Status: Acute Priority: High (4) D-dimer, elevated Status: Acute Priority: High (5) Diabetes mellitus Status: Chronic Priority: Medium Hospital Course - Lab Results Lab Results: Micro Results 11/21/18 12:50 Blood Blood Culture - Preliminary NO GROWTH AFTER 24 HOURS Most Recent Lab Values WBC 4.3 K/uL (4.8-10.8) L 11/21/18 06:35 RBC 4.15 Mil/uL (3.80-5.20) 11/21/18 06:35 Hgb 12.8 g/dL (12.0-16.0) 11/21/18 06:35 Hct 38.3 % (34.0-47.0) 11/21/18 06:35 MCV 92.2 fl (81.0-99.0) 11/21/18 06:35 MCH 30.8 pg (27.0-31.0) 11/21/18 06:35 MCHC 33.4 g/dL (33.0-37.0) 11/21/18 06:35 RDW 12.8 % (11.5-14.5) 11/21/18 06:35 Plt Count 174 K/uL (130-400) 11/21/18 06:35 MPV 8.5 fl (7.2-11.7) 11/20/18 12:13 Neut % (Auto) 89.1 % (50.0-75.0) H 11/20/18 12:13 Lymph % (Auto) 5.9 % (20.0-40.0) L 11/20/18 12:13 [place] % (Auto) 4.8 % (0.0-10.0) 11/20/18 12:13 Eos % (Auto) 0.1 % (0.0-4.0) 11/20/18 12:13 Baso % (Auto) 0.1 % (0.0-2.0) 11/20/18 12:13 Neut # (Auto) 7.6 K/uL (1.8-7.0) H 11/20/18 12:13 Lymph # (Auto) 0.5 K/uL (1.0-4.3) L 11/20/18 12:13 [place] # (Auto) 0.4 K/uL (0.0-0.8) 11/20/18 12:13 Eos # (Auto) 0.0 K/uL (0.0-0.7) 11/20/18 12:13 Baso # (Auto) 0.0 K/uL (0.0-0.2) 11/20/18 12:13 Neutrophils % (Manual) 91 % (42-75) H 11/20/18 12:13 Band Neutrophils % 2 % (0-2) 11/20/18 12:13 Lymphocytes % (Manual) 5 % (20-50) L 11/20/18 12:13 Monocytes % (Manual) 2 % (0-10) 11/20/18 12:13 Platelet Estimate Normal (NORMAL) 11/20/18 12:13 RBC Morphology Normal (NORMAL) 11/20/18 12:13 PT 13.1 Seconds (9.8-13.1) 11/21/18 06:35 INR 1.2 11/21/18 06:35 APTT 37.5 Seconds (25.6-37.1) H 11/21/18 06:35 D-Dimer, Quantitative 468 ng/mlDDU (0-230) H 11/20/18 12:13 Sodium 139 mmol/l (132-148) 11/22/18 10:30 Potassium 3.3 MMOL/L (3.6-5.0) L 11/22/18 10:30 Chloride 105 mmol/L (98-107) 11/22/18 10:30 Carbon Dioxide 24 mmol/L (22-30) 11/22/18 10:30 Anion Gap 13 (10-20) 11/22/18 10:30 BUN 10 mg/dl (7-17) 11/22/18 10:30 Creatinine 0.6 mg/dl (0.7-1.2) L 11/22/18 10:30 Est GFR ( Amer) > 60 11/22/18 10:30 Est GFR (Non-Af Amer) > 60 11/22/18 10:30 Random Glucose 90 mg/dL (65-105) 11/22/18 10:30 Calcium 9.1 mg/dL (8.4-10.2) 11/22/18 10:30 Phosphorus 2.6 mg/dl (2.5-4.5) 11/22/18 10:59 Magnesium 2.0 MG/DL (1.6-2.3) 11/22/18 10:59 Total Bilirubin 0.4 mg/dl (0.2-1.3) 11/22/18 10:30 AST 185 U/L (14-36) H 11/22/18 10:30 ALT 283 U/L (9-52) H 11/22/18 10:30 Alkaline Phosphatase 99 U/L (38-126) 11/22/18 10:30 Troponin I < 0.0120 ng/mL (0.00-0.120) 11/21/18 21:15 Total Protein 7.4 G/DL (6.3-8.2) 11/22/18 10:30 Albumin 4.1 g/dL (3.5-5.0) 11/22/18 10:30 Globulin 3.2 gm/dL (2.2-3.9) 11/22/18 10:30 Albumin/Globulin Ratio 1.3 (1.0-2.1) 11/22/18 10:30 Triglycerides 106 mg/DL (0-149) 11/21/18 06:35 Cholesterol 125 mg/dL (0-199) 11/21/18 06:35 LDL Cholesterol Direct 76 mg/dL (0-129) 11/21/18 06:35 HDL Cholesterol 28 MG/DL (30-70) L 11/21/18 06:35 Lipase 52 U/L (23-300) 11/20/18 12:13 Thyroxine (T4) 9.01 ug/dl (5.5-11.0) 11/21/18 06:35 TSH 3rd Generation 1.03 mIU/ML (0.46-4.68) 11/21/18 06:35 Urine Color Yellow (YELLOW) 11/22/18 13:00 Urine Clarity Slighty-cloudy (Clear) 11/22/18 13:00 Urine pH 6.0 (5.0-8.0) 11/22/18 13:00 Ur Specific [place] 1.021 (1.003-1.030) 11/22/18 13:00 Urine Protein Negative mg/dL (NEGATIVE) 11/22/18 13:00 Urine Glucose (UA) Neg mg/dL (NEGATIVE) 11/22/18 13:00 Urine Ketones Negative mg/dL (NEGATIVE) 11/22/18 13:00 Urine Blood Negative (NEGATIVE) 11/22/18 13:00 Urine Nitrate Negative (NEGATIVE) 11/22/18 13:00 Urine Bilirubin Negative (NEGATIVE) 11/22/18 13:00 Urine Urobilinogen 4.0 mg/dL (0.2-1.0) H 11/22/18 13:00 Ur Leukocyte Esterase Neg Ammy/uL (Negative) 11/22/18 13:00 Urine RBC (Auto) 1 /hpf (0-3) 11/22/18 13:00 Urine Microscopic WBC 2 /hpf (0-5) 11/22/18 13:00 Ur Squamous Epith Cells 8 /hpf (0-5) H 11/22/18 13:00 Urine Bacteria Rare (<OCC) 11/22/18 13:00 Urine Opiates Screen Negative (NEGATIVE) 11/21/18 11:13 Urine Methadone Screen Negative (NEGATIVE) 11/21/18 11:13 Ur Barbiturates Screen Negative (NEGATIVE) 11/21/18 11:13 Ur Phencyclidine Scrn Negative (NEGATIVE) 11/21/18 11:13 Ur Amphetamines Screen Negative (NEGATIVE) 11/21/18 11:13 U Benzodiazepines Scrn Negative (NEGATIVE) 11/21/18 11:13 U Oth Cocaine Metabols Negative (NEGATIVE) 11/21/18 11:13 U Cannabinoids Screen Negative (NEGATIVE) 11/21/18 11:13 Hepatitis A IgM Ab Negative (NEGATIVE) 11/21/18 10:17 Hep Bs Antigen Negative (NEGATIVE) 11/21/18 10:17 Hep B Core IgM Ab Negative (NEGATIVE) 03/28/19 10:17 Hepatitis C Antibody Negative (NEGATIVE) 11/21/18 10:17 Discharge Exam - Head Exam Head Exam: ATRAUMATIC, NORMAL INSPECTION, NORMOCEPHALIC Discharge Plan - Follow Up Plan Condition: STABLE Disposition: HOME/ ROUTINE Instructions: Chest Pain (DC), Gastritis (DC), Nonalcoholic Fatty Liver Disease (DC) Additional Instructions: follow up with primary md and in 1 week Referrals: Shaik Kirby MD [Primary Care Provider] - Mark Huang MD [Staff Provider] -
== END 2018-11-22 14:14 | disposition home or self-care (01) ==
LOC: H.ER 10:53 → H.ERHOLD 19:01 → H.TEL 11-21 00:32
PROVIDERS: ADMIT Internal Medicine Pulmonary Disease; ATTEND Internal Medicine Pulmonary Disease
DX: K52.9 Noninfective gastroenteritis and colitis, unspecified (principal); R07.89 Other chest pain; J45.909 Unspecified asthma, uncomplicated; K29.80 Duodenitis without bleeding; K29.50 Unspecified chronic gastritis without bleeding; D64.9 Anemia, unspecified; E11.9 Type 2 diabetes mellitus without complications; Z82.49 Family history of ischemic heart disease and other diseases of the circulatory system; R79.89 Other specified abnormal findings of blood chemistry
CPT/HCPCS: 36415; 43239; 71045; 76705; 78582; 80053; 80061; 80074; 80324; 80345; 80346; 80349; 80353; 80358; 80361; 81003; 81025; 83690; 83735; 83992; 84100; 84436; 84443; 84484; 85025; 85027; 85378; 85610; 85730; 87040; 87086; 88305; 93005; 93306; 93970; 96361; 96372; 96374; 96376; 99285; A9524; A9567; G0378; J1650; J2405; J7030; J7120